=== PATIENT | female | born 1945 | race Caucasian/White ===

== ENCOUNTER 2017-11-09 16:50 | Inpatient (IN) | payer MEDICARE ==
[2017-11-09] MEDS ORDERED: Acetaminophen 650 MG Suppository PR PRN (18:57)
[2017-11-09] MEDS ORDERED: Mag-Al Plus 1200 MG/1200 MG/120 MG/30 ML UDCUP PO PRN (20:37)
--- NOTE | 2017-11-10 01:50 | HP ---
DATE OF ADMISSION: 11/09/2017 ATTENDING DOCTOR: Dr. Bautista. PCP: Out of town, Dr. Monteiro. BLASTING CAP ASSEMBLER: Dr. Spicer in [place]. REASON FOR ADMISSION: Skilled rehabilitation post recent hospitalization. HISTORY OF PRESENT ILLNESS: Ms. Hopper is a very pleasant 72-year-old female with multiple chronic medical conditions including hypertension, diabetes , obesity, hypothyroidism, DVT with IVC filter on Xarelto. She presented at [facility] in [place] on 10/28/2017 with general weakness noted for a few days. This is associated with shortness of breath, dizziness, nausea, congestion, and chronic yellow productive cough. She denies fever. She states that on the day of admission, she was generally weak and her lower extremities started to feel like jelly that she could not move at all. The patient has history of chronic hypoxia, on continuous O2 at home. She has a history of pulmonary fibrosis with two lung nodules. She is being followed by her parks and recreation worker, Dr. Spicer in [place] for this. Her most recent CT scan prior to hospital admission showed lower lobe bronchiectasis and fibrosis. She has had a positive SSA and she was told she has Sjogren's given her lung findings. She was tried on oral prednisone by Dr. Spicer for a couple of months, which she self-discontinued secondary to gaining 20 pounds in a month's time. On her recent hospitalization, the patient was treated for pulmonary consolidation in the left lung base suspicious for pneumonia. She completed Rocephin and doxycycline over the course She receives DuoNeb q.i.d. scheduled. She remains on continuous O2 per nasal cannula between 2 to 3 liters. She is placed back on oral steroid at this point, currently on Prednisone 20 mg p.o. daily. The patient was placed on LifeVest during this recent hospitalization. She reports it did not work on her, thus discontinued. After 2 weeks of hospitalization, the patient remains generally weak and unable to walk. She reports that she could walk at least 50 feet using a rolling walker at home as her baseline. She reports that because of her previous 3 left knee surgeries and foot fracture, she remains to have an unsteady gait. The patient reported that she continues to have shortness of breath intermittently, especially with ambulation. She thinks she is at her respiratory baseline at this point. No other new issues reported. . PAST MEDICAL HISTORY: Hypertension, diabetes, hyperlipidemia, hypothyroidism, DVT with status post IVC filter and long-term anticoagulation with Xarelto, Sjogren disease, pulmonary fibrosis, pulmonary nodules being monitored by Dr. Spicer/parks and recreation worker, obesity, depression, anxiety, unsteady gait. PAST SURGICAL HISTORY: Cholecystectomy, hysterectomy, thyroidectomy, total knee replacement x3. ALLERGIES: BIAXIN, TORADOL. SOCIAL HISTORY: The patient is single, lives with her daughter who serves as primary chemical preparer. She lives in [place]. She never smoked. She admits to occasional alcohol beverage drink. Denies illicit drug use. OTHER PROCEDURES DONE: Status post bronchoscopy, 10/30/2017, by Dr. Spicer, culture was negative. CURRENT MEDICATIONS: Prednisone 20 mg p.o. daily, metformin 1000 mg p.o. b.i.d. , rosuvastatin 20 mg p.o. at bedtime, multivitamins 1 capsule each daily, metoprolol 100 mg p.o. at bedtime, Humalog 22 units subcu b.i.d., Levemir 6 units subcu b.i.d., Xarelto 20 mg p.o. at bedtime, glimepiride 4 mg p.o. b.i.d. , levothyroxine 125 mg p.o. q.a.m., losartan 100 mg p.o. daily, venlafaxine 150 mg XR daily. REVIEW OF SYSTEMS: General: Reports general weakness, fatigue. Denies fever, chills, loss of appetite. HEENT: No acute visual changes or hearing changes. She reports chronic hoarseness of voice. Respiratory: As per HPI. Denies sputum production, bloody sputum, pain with breathing. Cardiac: Denies chest pain, pain with breathing. Reports intermittent leg edema, dyspnea on exertion. Denies paroxysmal nocturnal dyspnea. Genitourinary: No dysuria, hematuria, frequency, urgency. Denies incontinence and hematuria. Musculoskeletal: Reports intermittent arthralgia stiffness. No joint effusion or swelling. Neuro: No focal numbness, focal weakness. Reports unsteady gait secondary to imbalance. Psych: Admits to depressive symptoms, anxiety. No hallucinations. No suicidal thoughts, ideations, or plans. Skin: No rashes, no lesions. ASSESSMENT: 1. Deconditioning. 2. General weakness. 3. Pulmonary fibrosis, probable Sjogren disease. 4. Community Acquired Pneumonia, treated. 5. Chronic hypoxia, 02 requiring. 6. Type 2 diabetes, insulin requiring. 7. Hypertension. 8. Acquired hypothyroidism. 9. Dyslipidemia. 10. Depression/anxiety. 11.Morbid Obesity. 12. Unsteady gait. 13. H/o DVT, status post IVC filter and long-term anticoagulation with Xarelto. PLAN: 1. The patient is admitted to Med/Surg for skilled rehabilitation. PT, OT evaluate and treat. 2. Continue current medication as modified as per list. We will confirm the length of oral steroid treatment with the hospitalist or Dr. Spicer, the parks and recreation worker. Accu-Chek q.a.c. and at bedtime, DuoNeb q.i.d., while awake. 3. O2: To keep O2 sats 92 and above. 4. Diet: Diabetic diet. 5. Activity will be determined by the therapist. 6. Deep venous thrombosis prophylaxis: The patient is already on Xarelto. 7. GI prophylaxis with PPI. We will continue to monitor the patient for any medical comorbidities that may interfere with rehab progress. ESTIMATED LENGTH OF STAY: 2 to 3 weeks. CODE STATUS: The patient reports full code. MTDD
[2017-11-10] MEDS ORDERED: Ondansetron ODT 4 MG TAB PO PRN (02:26)
[2017-11-10] MEDS ORDERED: Levothyroxine Sodium 125 MCG TAB PO SCH (06:30)
[2017-11-10] MEDS ORDERED: HumaLOG 300 UNITS/3 ML VIAL SC SCH (09:00)
[2017-11-10] MEDS: Calcium/Multivitamins W-Iron 1 TAB TAB PO SCH (09:11)
[2017-11-10] MEDS: metFORMIN XR 500 MG TAB PO SCH ×2 (09:11→16:57)
[2017-11-10] MEDS: Glimepiride 2 MG TAB PO SCH ×2 (09:12→16:57)
[2017-11-10] MEDS: Losartan 25 MG TAB PO SCH (09:12)
[2017-11-10] MEDS: predniSONE 20 MG TAB PO SCH (09:12)
[2017-11-10] MEDS: Venlafaxine HCl XR 150 MG CAP PO SCH (09:12)
[2017-11-10] MEDS: Lantus 1000 UNITS/10 ML VIAL SC SCH ×2 (09:15→20:31)
[2017-11-10] MEDS: HumaLOG 300 UNITS/3 ML VIAL SC SCH ×2 (10:00→16:58)
[2017-11-10] MEDS: Acetaminophen 325 MG TAB PO PRN ×2 (10:59→20:37)
[2017-11-10] MEDS: Rivaroxaban 10 MG TAB PO SCH (16:58)
[2017-11-10] MEDS: Rosuvastatin 10 MG TAB PO SCH (20:31)
[2017-11-11] MEDS: Levothyroxine Sodium 125 MCG TAB PO SCH (05:54)
[2017-11-11] MEDS: predniSONE 20 MG TAB PO SCH (08:04)
[2017-11-11] MEDS: Glimepiride 2 MG TAB PO SCH ×2 (08:04→16:57)
[2017-11-11] MEDS: metFORMIN XR 500 MG TAB PO SCH ×2 (08:04→16:57)
[2017-11-11] MEDS: Venlafaxine HCl XR 150 MG CAP PO SCH (08:04)
[2017-11-11] MEDS: Calcium/Multivitamins W-Iron 1 TAB TAB PO SCH (08:04)
[2017-11-11] MEDS: Losartan 25 MG TAB PO SCH (08:05)
[2017-11-11] MEDS: Lantus 1000 UNITS/10 ML VIAL SC SCH ×2 (08:06→20:30)
[2017-11-11] MEDS: HumaLOG 300 UNITS/3 ML VIAL SC SCH ×2 (08:07→16:58)
[2017-11-11] MEDS: Rivaroxaban 10 MG TAB PO SCH (16:57)
[2017-11-11] MEDS: Polyethylene Glycol 3350 17 GM Packet PO PRN (16:57)
[2017-11-11] MEDS: Rosuvastatin 10 MG TAB PO SCH (20:32)
[2017-11-12] MEDS: Levothyroxine Sodium 125 MCG TAB PO SCH (05:39)
[2017-11-12] MEDS: predniSONE 20 MG TAB PO SCH (08:36)
[2017-11-12] MEDS: Glimepiride 2 MG TAB PO SCH ×2 (08:36→20:36)
[2017-11-12] MEDS: Losartan 25 MG TAB PO SCH (08:37)
[2017-11-12] MEDS: Venlafaxine HCl XR 150 MG CAP PO SCH (08:37)
[2017-11-12] MEDS: Calcium/Multivitamins W-Iron 1 TAB TAB PO SCH (08:37)
[2017-11-12] MEDS: HumaLOG 300 UNITS/3 ML VIAL SC SCH ×2 (08:38→17:04)
[2017-11-12] MEDS: Lantus 1000 UNITS/10 ML VIAL SC SCH ×2 (08:38→17:02)
[2017-11-12] MEDS ORDERED: metFORMIN XR 500 MG TAB PO SCH (17:00)
[2017-11-12] MEDS: Rivaroxaban 10 MG TAB PO SCH (17:31)
[2017-11-12] MEDS: Rosuvastatin 10 MG TAB PO SCH (20:35)
[2017-11-12] MEDS: metFORMIN 500 MG TAB PO SCH (20:36)
[2017-11-13] MEDS: Levothyroxine Sodium 125 MCG TAB PO SCH (03:55)
[2017-11-13] MEDS: Acetaminophen 325 MG TAB PO PRN (03:56)
[2017-11-13 05:15] LABS: Hemoglobin 11.5 g/dL (12.0-16.0); Platelet Count 473 thou/uL (130-400)
[2017-11-13] MEDS: HumaLOG 300 UNITS/3 ML VIAL SC SCH ×3 (07:48→16:54)
[2017-11-13] MEDS: Lantus 1000 UNITS/10 ML VIAL SC SCH ×4 (07:48→16:54)
[2017-11-13] MEDS: Glimepiride 2 MG TAB PO SCH ×2 (07:50→20:19)
[2017-11-13] MEDS: Calcium/Multivitamins W-Iron 1 TAB TAB PO SCH (07:50)
[2017-11-13] MEDS: metFORMIN 500 MG TAB PO SCH ×2 (07:50→20:19)
[2017-11-13] MEDS: Losartan 25 MG TAB PO SCH (07:50)
[2017-11-13] MEDS: Venlafaxine HCl XR 150 MG CAP PO SCH (07:50)
[2017-11-13] MEDS: predniSONE 20 MG TAB PO SCH (07:51)
[2017-11-13] MEDS: Rivaroxaban 10 MG TAB PO SCH (16:54)
[2017-11-13] MEDS: Rosuvastatin 10 MG TAB PO SCH (20:19)
[2017-11-14] MEDS: Levothyroxine Sodium 125 MCG TAB PO SCH (06:01)
[2017-11-14] MEDS: Glimepiride 2 MG TAB PO SCH ×2 (07:56→20:28)
[2017-11-14] MEDS: Lantus 1000 UNITS/10 ML VIAL SC SCH ×2 (07:58→16:48)
[2017-11-14] MEDS: HumaLOG 300 UNITS/3 ML VIAL SC SCH ×2 (07:58→16:48)
[2017-11-14] MEDS: metFORMIN 500 MG TAB PO SCH ×2 (07:59→20:26)
[2017-11-14] MEDS: predniSONE 20 MG TAB PO SCH (07:59)
[2017-11-14] MEDS: Losartan 25 MG TAB PO SCH (10:07)
[2017-11-14] MEDS: Calcium/Multivitamins W-Iron 1 TAB TAB PO SCH (10:07)
[2017-11-14] MEDS: Venlafaxine HCl XR 150 MG CAP PO SCH (10:07)
[2017-11-14] MEDS: Rivaroxaban 10 MG TAB PO SCH (16:49)
[2017-11-14] MEDS: Rosuvastatin 10 MG TAB PO SCH (20:27)
[2017-11-15 05:15] LABS: Hemoglobin 11.5 g/dL (12.0-16.0); Platelet Count 456 thou/uL (130-400)
[2017-11-15] MEDS: Levothyroxine Sodium 125 MCG TAB PO SCH (05:43)
[2017-11-15] MEDS: Glimepiride 2 MG TAB PO SCH ×2 (07:50→20:51)
[2017-11-15] MEDS: Lantus 1000 UNITS/10 ML VIAL SC SCH ×2 (07:52→20:52)
[2017-11-15] MEDS: HumaLOG 300 UNITS/3 ML VIAL SC SCH ×2 (07:52→21:13)
[2017-11-15] MEDS: metFORMIN 500 MG TAB PO SCH ×2 (09:44→20:51)
[2017-11-15] MEDS: Calcium/Multivitamins W-Iron 1 TAB TAB PO SCH (09:45)
[2017-11-15] MEDS: predniSONE 20 MG TAB PO SCH (09:45)
[2017-11-15] MEDS: Losartan 25 MG TAB PO SCH (09:46)
[2017-11-15] MEDS: Venlafaxine HCl XR 150 MG CAP PO SCH (09:47)
[2017-11-15] MEDS ORDERED: Dextrose 50% Abboject 50 ML SYRINGE SLOW IVP PRN (11:05)
[2017-11-15] MEDS ORDERED: Dextrose 5% in Water 1,000 ML IV PRN (11:05)
[2017-11-15] MEDS: Rivaroxaban 10 MG TAB PO SCH (17:26)
[2017-11-15] MEDS: Rosuvastatin 10 MG TAB PO SCH (20:51)
[2017-11-16] MEDS: Levothyroxine Sodium 125 MCG TAB PO SCH (05:28)
[2017-11-16] MEDS: Glimepiride 2 MG TAB PO SCH ×2 (08:33→21:19)
[2017-11-16] MEDS: Calcium/Multivitamins W-Iron 1 TAB TAB PO SCH (08:33)
[2017-11-16] MEDS: metFORMIN 500 MG TAB PO SCH ×2 (08:34→21:19)
[2017-11-16] MEDS: Venlafaxine HCl XR 150 MG CAP PO SCH (08:34)
[2017-11-16] MEDS: Losartan 25 MG TAB PO SCH (08:34)
[2017-11-16] MEDS: predniSONE 20 MG TAB PO SCH (08:34)
[2017-11-16] MEDS: HumaLOG 300 UNITS/3 ML VIAL SC SCH ×2 (08:35→21:20)
[2017-11-16] MEDS: Lantus 1000 UNITS/10 ML VIAL SC SCH ×2 (08:36→21:21)
[2017-11-16] MEDS: Acetaminophen 325 MG TAB PO PRN ×2 (10:54→23:11)
[2017-11-16 11:53] LABS: Hemoglobin A1c 6.6 % (4.0-6.0)
[2017-11-16] MEDS: Rivaroxaban 10 MG TAB PO SCH (17:31)
[2017-11-16] MEDS: Rosuvastatin 10 MG TAB PO SCH (21:18)
[2017-11-17] MEDS: Levothyroxine Sodium 125 MCG TAB PO SCH (05:12)
[2017-11-17 05:43] LABS: Hemoglobin 11.4 g/dL (12.0-16.0); Platelet Count 481 thou/uL (130-400)
[2017-11-17] MEDS: Losartan 25 MG TAB PO SCH (08:55)
[2017-11-17] MEDS: metFORMIN 500 MG TAB PO SCH ×2 (08:56→20:47)
[2017-11-17] MEDS: Lantus 1000 UNITS/10 ML VIAL SC SCH ×2 (08:56→20:48)
[2017-11-17] MEDS: Venlafaxine HCl XR 150 MG CAP PO SCH (08:56)
[2017-11-17] MEDS: HumaLOG 300 UNITS/3 ML VIAL SC SCH ×2 (08:56→20:48)
[2017-11-17] MEDS: predniSONE 20 MG TAB PO SCH (08:56)
[2017-11-17] MEDS: Glimepiride 2 MG TAB PO SCH ×2 (08:56→20:48)
[2017-11-17] MEDS: Calcium/Multivitamins W-Iron 1 TAB TAB PO SCH (08:56)
[2017-11-17] MEDS: Rivaroxaban 10 MG TAB PO SCH (16:13)
[2017-11-17] MEDS: Rosuvastatin 10 MG TAB PO SCH (20:47)
[2017-11-17] MEDS: Acetaminophen 325 MG TAB PO PRN (21:01)
[2017-11-18] MEDS: Levothyroxine Sodium 125 MCG TAB PO SCH (06:01)
[2017-11-18] MEDS: Losartan 25 MG TAB PO SCH (08:29)
[2017-11-18] MEDS: metFORMIN 500 MG TAB PO SCH ×2 (08:29→21:24)
[2017-11-18] MEDS: Calcium/Multivitamins W-Iron 1 TAB TAB PO SCH (08:29)
[2017-11-18] MEDS: Venlafaxine HCl XR 150 MG CAP PO SCH (08:29)
[2017-11-18] MEDS: Glimepiride 2 MG TAB PO SCH ×2 (08:29→21:25)
[2017-11-18] MEDS: HumaLOG 300 UNITS/3 ML VIAL SC SCH ×2 (08:30→21:26)
[2017-11-18] MEDS: Lantus 1000 UNITS/10 ML VIAL SC SCH ×2 (08:30→21:27)
[2017-11-18] MEDS: predniSONE 20 MG TAB PO SCH (08:30)
[2017-11-18] MEDS: Acetaminophen 325 MG TAB PO PRN (15:04)
[2017-11-18] MEDS: Rivaroxaban 10 MG TAB PO SCH (17:20)
[2017-11-18] MEDS: Rosuvastatin 10 MG TAB PO SCH (21:25)
[2017-11-19] MEDS: Levothyroxine Sodium 125 MCG TAB PO SCH (05:33)
[2017-11-19 05:46] LABS: Platelet Count 411 thou/uL (130-400)
[2017-11-19] MEDS: predniSONE 20 MG TAB PO SCH (08:20)
[2017-11-19] MEDS: Venlafaxine HCl XR 150 MG CAP PO SCH (08:20)
[2017-11-19] MEDS: metFORMIN 500 MG TAB PO SCH ×2 (08:20→20:33)
[2017-11-19] MEDS: Glimepiride 2 MG TAB PO SCH ×2 (08:20→20:33)
[2017-11-19] MEDS: Losartan 25 MG TAB PO SCH (08:20)
[2017-11-19] MEDS: Calcium/Multivitamins W-Iron 1 TAB TAB PO SCH (08:20)
[2017-11-19] MEDS: HumaLOG 300 UNITS/3 ML VIAL SC SCH ×2 (08:22→20:34)
[2017-11-19] MEDS: Lantus 1000 UNITS/10 ML VIAL SC SCH ×2 (08:23→20:35)
[2017-11-19] MEDS: Diabetic Tussin 200 MG/10 ML UDCUP PO PRN (15:29)
[2017-11-19] MEDS: Rivaroxaban 10 MG TAB PO SCH (17:37)
[2017-11-19] MEDS: Benzonatate 100 MG CAP PO SCH (20:33)
[2017-11-19] MEDS: Rosuvastatin 10 MG TAB PO SCH (20:38)
[2017-11-20] MEDS: Glimepiride 2 MG TAB PO SCH ×2 (15:59→20:46)
[2017-11-20] MEDS: metFORMIN 500 MG TAB PO SCH ×2 (15:59→20:14)
[2017-11-20] MEDS: Levothyroxine Sodium 125 MCG TAB PO SCH (15:59)
[2017-11-20] MEDS: Calcium/Multivitamins W-Iron 1 TAB TAB PO SCH (16:00)
[2017-11-20] MEDS: predniSONE 20 MG TAB PO SCH (16:00)
[2017-11-20] MEDS: Lantus 1000 UNITS/10 ML VIAL SC SCH ×2 (16:00→23:11)
[2017-11-20] MEDS: Benzonatate 100 MG CAP PO SCH ×3 (16:00→20:46)
[2017-11-20] MEDS: Losartan 25 MG TAB PO SCH (16:01)
[2017-11-20] MEDS: Venlafaxine HCl XR 150 MG CAP PO SCH (16:02)
[2017-11-20] MEDS: HumaLOG 300 UNITS/3 ML VIAL SC SCH ×2 (17:30→17:35)
[2017-11-20] MEDS: Rivaroxaban 10 MG TAB PO SCH (17:32)
[2017-11-20] MEDS: Acetaminophen 325 MG TAB PO PRN (20:46)
[2017-11-20] MEDS: Rosuvastatin 10 MG TAB PO SCH (20:46)
[2017-11-20] MEDS: Diabetic Tussin 200 MG/10 ML UDCUP PO PRN (20:52)
[2017-11-21] MEDS: Levothyroxine Sodium 125 MCG TAB PO SCH (05:10)
[2017-11-21 05:26] LABS: Hemoglobin 11.1 g/dL (12.0-16.0); Platelet Count 369 thou/uL (130-400)
[2017-11-21] MEDS: Calcium/Multivitamins W-Iron 1 TAB TAB PO SCH (08:19)
[2017-11-21] MEDS: Glimepiride 2 MG TAB PO SCH ×2 (08:19→20:48)
[2017-11-21] MEDS: Venlafaxine HCl XR 150 MG CAP PO SCH (08:19)
[2017-11-21] MEDS: Lantus 1000 UNITS/10 ML VIAL SC SCH ×2 (08:20→20:49)
[2017-11-21] MEDS: Benzonatate 100 MG CAP PO SCH ×3 (08:20→20:47)
[2017-11-21] MEDS: Losartan 25 MG TAB PO SCH (08:20)
[2017-11-21] MEDS: metFORMIN 500 MG TAB PO SCH ×2 (08:20→16:40)
[2017-11-21] MEDS: predniSONE 20 MG TAB PO SCH (08:20)
[2017-11-21] MEDS: HumaLOG 300 UNITS/3 ML VIAL SC SCH ×2 (08:21→16:40)
[2017-11-21] MEDS: Diabetic Tussin 200 MG/10 ML UDCUP PO PRN (15:52)
[2017-11-21] MEDS: Rivaroxaban 10 MG TAB PO SCH (16:40)
[2017-11-21] MEDS: Rosuvastatin 10 MG TAB PO SCH (20:49)
[2017-11-21] MEDS: Acetaminophen 325 MG TAB PO PRN (22:19)
[2017-11-22] MEDS: Levothyroxine Sodium 125 MCG TAB PO SCH (05:32)
[2017-11-22] MEDS: Losartan 25 MG TAB PO SCH (08:55)
[2017-11-22] MEDS: predniSONE 20 MG TAB PO SCH (08:55)
[2017-11-22] MEDS: metFORMIN 500 MG TAB PO SCH ×2 (08:55→17:04)
[2017-11-22] MEDS: Benzonatate 100 MG CAP PO SCH ×3 (08:55→20:12)
[2017-11-22] MEDS: Glimepiride 2 MG TAB PO SCH ×2 (08:56→20:11)
[2017-11-22] MEDS: Lantus 1000 UNITS/10 ML VIAL SC SCH ×2 (08:56→20:18)
[2017-11-22] MEDS: HumaLOG 300 UNITS/3 ML VIAL SC SCH ×2 (08:56→17:04)
[2017-11-22] MEDS: Venlafaxine HCl XR 150 MG CAP PO SCH (08:56)
[2017-11-22] MEDS: Calcium/Multivitamins W-Iron 1 TAB TAB PO SCH (08:56)
[2017-11-22] MEDS: Rivaroxaban 10 MG TAB PO SCH (17:04)
[2017-11-22] MEDS: Rosuvastatin 10 MG TAB PO SCH (20:14)
[2017-11-22] MEDS: Diabetic Tussin 200 MG/10 ML UDCUP PO PRN (20:20)
[2017-11-23] MEDS: Levothyroxine Sodium 125 MCG TAB PO SCH (05:26)
[2017-11-23] MEDS: Diabetic Tussin 200 MG/10 ML UDCUP PO PRN ×2 (05:32→11:14)
[2017-11-23] MEDS: Glimepiride 2 MG TAB PO SCH ×2 (08:23→20:31)
[2017-11-23] MEDS: predniSONE 20 MG TAB PO SCH (08:23)
[2017-11-23] MEDS: metFORMIN 500 MG TAB PO SCH ×2 (08:23→16:58)
[2017-11-23] MEDS: Calcium/Multivitamins W-Iron 1 TAB TAB PO SCH (08:24)
[2017-11-23] MEDS: Losartan 25 MG TAB PO SCH (08:24)
[2017-11-23] MEDS: Venlafaxine HCl XR 150 MG CAP PO SCH (08:24)
[2017-11-23] MEDS: Benzonatate 100 MG CAP PO SCH ×2 (08:24→14:50)
[2017-11-23] MEDS: HumaLOG 300 UNITS/3 ML VIAL SC SCH ×2 (08:25→16:58)
[2017-11-23] MEDS: Lantus 1000 UNITS/10 ML VIAL SC SCH ×2 (08:25→20:33)
[2017-11-23] MEDS: Rivaroxaban 10 MG TAB PO SCH (16:59)
[2017-11-23] MEDS: Promethazine DM 6.25-15mg/5ml 120 ML BOT PO PRN (17:58)
[2017-11-23] MEDS: Rosuvastatin 10 MG TAB PO SCH (20:31)
[2017-11-24] MEDS: Levothyroxine Sodium 125 MCG TAB PO SCH (06:10)
[2017-11-24] MEDS: Glimepiride 2 MG TAB PO SCH ×2 (08:01→20:49)
[2017-11-24] MEDS: metFORMIN 500 MG TAB PO SCH ×2 (08:01→16:59)
[2017-11-24] MEDS: predniSONE 20 MG TAB PO SCH (08:01)
[2017-11-24] MEDS: HumaLOG 300 UNITS/3 ML VIAL SC SCH ×2 (08:04→16:59)
[2017-11-24] MEDS: Calcium/Multivitamins W-Iron 1 TAB TAB PO SCH (10:35)
[2017-11-24] MEDS: Venlafaxine HCl XR 150 MG CAP PO SCH (10:35)
[2017-11-24] MEDS: Losartan 25 MG TAB PO SCH (10:36)
[2017-11-24] MEDS: Lantus 1000 UNITS/10 ML VIAL SC SCH ×2 (10:36→20:49)
[2017-11-24] MEDS: Promethazine DM 6.25-15mg/5ml 120 ML BOT PO PRN ×2 (12:36→20:49)
[2017-11-24] MEDS: Polyethylene Glycol 3350 17 GM Packet PO PRN (15:19)
[2017-11-24] MEDS: Rivaroxaban 10 MG TAB PO SCH (16:59)
[2017-11-24] MEDS: Rosuvastatin 10 MG TAB PO SCH (20:49)
[2017-11-25 05:16] LABS: Platelet Count 369 thou/uL (130-400)
[2017-11-25] MEDS: Levothyroxine Sodium 125 MCG TAB PO SCH (05:45)
[2017-11-25] MEDS: Losartan 25 MG TAB PO SCH (08:35)
[2017-11-25] MEDS: Glimepiride 2 MG TAB PO SCH ×2 (08:35→20:09)
[2017-11-25] MEDS: Calcium/Multivitamins W-Iron 1 TAB TAB PO SCH (08:35)
[2017-11-25] MEDS: predniSONE 20 MG TAB PO SCH (08:36)
[2017-11-25] MEDS: Venlafaxine HCl XR 150 MG CAP PO SCH (08:36)
[2017-11-25] MEDS: metFORMIN 500 MG TAB PO SCH ×2 (08:36→16:35)
[2017-11-25] MEDS: HumaLOG 300 UNITS/3 ML VIAL SC SCH ×2 (08:36→16:36)
[2017-11-25] MEDS: Lantus 1000 UNITS/10 ML VIAL SC SCH ×2 (08:36→20:11)
[2017-11-25] MEDS: Rivaroxaban 10 MG TAB PO SCH (16:35)
[2017-11-25] MEDS: Promethazine DM 6.25-15mg/5ml 120 ML BOT PO PRN (20:08)
[2017-11-25] MEDS: Rosuvastatin 10 MG TAB PO SCH (20:09)
[2017-11-26] MEDS: Levothyroxine Sodium 125 MCG TAB PO SCH (05:46)
[2017-11-26] MEDS: Losartan 25 MG TAB PO SCH (08:30)
[2017-11-26] MEDS: Calcium/Multivitamins W-Iron 1 TAB TAB PO SCH (08:30)
[2017-11-26] MEDS: Venlafaxine HCl XR 150 MG CAP PO SCH (08:31)
[2017-11-26] MEDS: metFORMIN 500 MG TAB PO SCH ×2 (08:31→16:13)
[2017-11-26] MEDS: Glimepiride 2 MG TAB PO SCH ×2 (08:31→21:15)
[2017-11-26] MEDS: predniSONE 20 MG TAB PO SCH (08:31)
[2017-11-26] MEDS: HumaLOG 300 UNITS/3 ML VIAL SC SCH ×2 (08:33→16:14)
[2017-11-26] MEDS: Lantus 1000 UNITS/10 ML VIAL SC SCH ×2 (08:33→21:15)
[2017-11-26] MEDS: Promethazine DM 6.25-15mg/5ml 120 ML BOT PO PRN ×2 (15:12→22:04)
[2017-11-26] MEDS: Rivaroxaban 10 MG TAB PO SCH (16:13)
[2017-11-26 17:36] VITALS: BMI 33.2
[2017-11-26] MEDS: Rosuvastatin 10 MG TAB PO SCH (21:15)
[2017-11-27 05:26] LABS: Hemoglobin 11.6 g/dL (12.0-16.0); Platelet Count 447 thou/uL (130-400)
[2017-11-27] MEDS: Levothyroxine Sodium 125 MCG TAB PO SCH (05:58)
[2017-11-27 07:47] VITALS: TEMP 97
[2017-11-27] MEDS: HumaLOG 300 UNITS/3 ML VIAL SC SCH ×2 (08:56→17:05)
[2017-11-27] MEDS: Glimepiride 2 MG TAB PO SCH (08:56)
[2017-11-27] MEDS: Lantus 1000 UNITS/10 ML VIAL SC SCH (08:57)
[2017-11-27] MEDS: Calcium/Multivitamins W-Iron 1 TAB TAB PO SCH (08:58)
[2017-11-27] MEDS: metFORMIN 500 MG TAB PO SCH ×2 (08:58→17:06)
[2017-11-27] MEDS: predniSONE 20 MG TAB PO SCH (08:58)
[2017-11-27] MEDS: Losartan 25 MG TAB PO SCH (08:59)
[2017-11-27] MEDS: Venlafaxine HCl XR 150 MG CAP PO SCH (08:59)
[2017-11-27] MEDS: Promethazine DM 6.25-15mg/5ml 120 ML BOT PO PRN ×2 (09:00→17:12)
[2017-11-27 12:52] VITALS: BP 113/54
[2017-11-27] MEDS: Rivaroxaban 10 MG TAB PO SCH (17:06)
--- NOTE | 2017-11-28 03:15 | DIS ---
DATE OF ADMISSION: 11/09/2017 DATE OF DISCHARGE: 11/27/2017 ATTENDING: Anai Bautista M.D. PRIMARY CARE PHYSICIAN: Out of [facility], Dr. Monteiro. INSURANCE SPECIAL AGENT: Dr. Spicer in [place]. REASON FOR ADMISSION: Skilled rehabilitation from recent hospitalization. DISPOSITION: Home. CONDITION ON DISCHARGE: Stable. HOME MEDICATIONS: DuoNeb q.6 hours p.r.n., pantoprazole 40 mg p.o. daily, promethazine DM 10 mL p.o. q.6 hours p.r.n. for cough, glimepiride 4 mg p.o. b.i.d., metformin 500 mg b.i.d., Humalog 12 units subcutaneously b.i.d. a.c., Lantus 6 units subcu b.i.d., levothyroxine 125 mcg p.o. q.a.m., losartan 100 mg p.o. daily, metoprolol succinate/Toprol XL 100 mg p.o. at bedtime, polyethylene glycol 17 grams p.o. daily, Xarelto 20 mg p.o. every 1700, rosuvastatin 20 mg p.o. at bedtime, Effexor XR 150 mg p.o. daily, acetaminophen 650 mg p.o. q.4 hours p.r.n., multivitamin daily, prednisone 20 mg p.o. q.8 hours. DIET: Diabetic AHA. ACTIVITIES: To use rolling walker at all times. Continuous home O2 at 2 liters per nasal cannula. FOLLOWUP: Follow up with PCP in 1-2 weeks sooner with concerns. Follow up with wrapper stemmer hand in 1-2 weeks. The patient to arrange appointment post discharge per request. [facility] to resume home health services for alf, PT, OT evaluate and treat. ER warnings. FINAL DIAGNOSES: 1. Deconditioning/general weakness. 2. Pulmonary fibrosis, probable Sjogren's disease. 3. Community-acquired pneumonia, treated. 4. Chronic hypoxia, O2 requiring. 5. Unsteady gait. SECONDARY DIAGNOSES: 1. Type 2 diabetes, insulin requiring. 2. Hypertension. 3. Acquired hypothyroidism. 4. Dyslipidemia. 5. Depression. 6. Anxiety. 7. Morbid obesity. 8. History of deep venous thrombosis status post IVC filter on long-term anticoagulation use with Xarelto. HISTORY OF PRESENT ILLNESS AND HOSPITAL COURSE: Ms. Hopper is a very pleasant 72- year-old female with multiple chronic medical conditions including hypertension, diabetes, obesity, hypothyroidism, DVT with IVC filter, on Xarelto. She was admitted to [facility] on 11/09/2017 from [facility] in [place] for general weakness and deconditioning. The patient was recently admitted at [facility] in [place] on 10/28/2017 due to shortness of breath, dizziness, nausea, congestion, and chronic productive cough. She was admitted for bronchiectasis and fibrosis. Note that the patient has had positive SSA prior to admission and she was told that she has possible Sjogren's by her wrapper stemmer hand. She was tried on oral prednisone by her wrapper stemmer hand for this but patient self-discontinued the oral steroids secondary to weight gain of 20 pounds in a month's time. On her recent hospitalization, patient was treated for pulmonary consolidation in the left lung base suspicious of pneumonia. She completed her Rocephin and doxycycline during this time. She also received DuoNeb q.i.d. scheduled. She was placed back on oral steroids. Currently on prednisone 20 mg p.o. daily. Of note, the patient was tried on LifeVest during her recent hospitalization, but was discontinued as she reports it did not work. After 2-week treatment, her overall respiratory symptoms have improved, but she remains generally weak and unable to walk secondary to severe deconditioning. She was then transferred to [facility] for skilled rehabilitation. The patient did a marked improvement in the rehabilitation in a very slow manner. The main barrier during her rehab course was the shortness of breath on exertion. Overall, respiratory symptoms improved and patient tolerated the therapy. She wears her oxygen continuously that helps her breathing. During her rehab course, she complained of paroxysmal coughing spells that led to shortness of breath. She was tried on several cough suppressants, but nothing works except for the promethazine DM. The patient requested to have a prescription of the promethazine DM that was ordered as p.r.n. use at home until seen by her wrapper stemmer hand. Prior to discharge, patient was walking about 80 feet with rolling walker and O2 supplement continuously. She demonstrated good safety awareness and energy conservation techniques. Her O2 saturation remained at 91% -100% on 3 liters per nasal cannula during the therapy and desats to 91% with limited gait distances, but is within normal on 3 liters per nasal cannula when resting. Overall goal is not met during this skilled rehabilitation, but marked improvement was noted. On 11/27/2017, patient is adamant to go home that she was recommended to continue therapy at home via home health. Vital signs prior to discharge, blood pressure 113/54, temperature 97, pulse 82 , respiration rate 18, O2 sat 100% at 2-3 liters per nasal cannula, weight 187 pounds and 8 ounces, height 5 feet 3 inches. CODE STATUS: FULL CODE. Time spent on this discharge, examining the patient and coordinating care 32 minutes. PILY
== END 2017-11-27 19:00 | disposition home health service (06) | DRG 947 ==
LOC: MADMS 16:50
PROVIDERS: ADMIT Family Medicine; ATTEND Family Medicine
DX: R53.1 Weakness (principal); J18.9 Pneumonia, unspecified organism; I10 Essential (primary) hypertension; E11.9 Type 2 diabetes mellitus without complications; E03.9 Hypothyroidism, unspecified; Z86.718 Personal history of other venous thrombosis and embolism; R09.02 Hypoxemia; Z99.81 Dependence on supplemental oxygen; J84.10 Pulmonary fibrosis, unspecified; R91.8 Other nonspecific abnormal finding of lung field; J47.9 Bronchiectasis, uncomplicated; R26.81 Unsteadiness on feet; E78.5 Hyperlipidemia, unspecified; Z79.01 Long term (current) use of anticoagulants; M35.02 Sjogren syndrome with lung involvement; F32.9 Major depressive disorder, single episode, unspecified; F41.9 Anxiety disorder, unspecified; E66.01 Morbid (severe) obesity due to excess calories; H81.10 Benign paroxysmal vertigo, unspecified ear; K30 Functional dyspepsia; K21.9 Gastro-esophageal reflux disease without esophagitis; Z68.33 Body mass index [BMI] 33.0-33.9, adult
CPT/HCPCS: 36415; 36416; 82565; 83036; 85014; 85018; 85049; G8987-GO-CL; G8988-GO-CI; J1815; J7506; J7620; Q0162

== ENCOUNTER 2018-11-17 09:01 | Emergency (ER) | payer MEDICARE ==
[2018-11-17 09:54] LABS: Bilirubin Negative (Negative); Blood, Urine Trace (Negative); Clarity Clear (Clear); Glucose, Urine (Dipstick) 100 mg/dL (Negative); Leukocyte Negative (Negative); Nitrite Negative (Negative); Protein, Urine (Dipstick) Negative (Neg-Trace); Urobilinogen 0.2 mg/dL (Less than 2)
[2018-11-17 10:03] LABS: Hemoglobin 11.7 g/dL (12.0-16.0); Mean Corpuscular HGB CONC 31.5 g/dL (32.0-36.0); Mean Corpuscular Hemoglobin 27.8 pg (27.0-31.0); Mean Corpuscular Volume 88.4 fL (78.0-98.0); Mean Platelet Volume 5.4 fL (7.4-10.4); Platelet Count 316 thou/uL (130-400); RBC Distribution Width 14.2 % (11.5-14.5); Red Blood Cell (RBC) Count 4.22 mill/uL (4.20-5.40); White Blood Cell (WBC) Count 15.4 thou/uL (4.8-10.8)
[2018-11-17 10:04] LABS: Lymphocytes 55 % (21-51); MDiff Complete? YES; Monocytes 4 % (0-10); Neutrophil 38 % (42-75); Platelet Morphology Comment Appears Adequate; Reactive Lymphocytes 3 % (0-10)
[2018-11-17 10:06] LABS: Bacteria/HPF None Seen HPF (None Seen); RBC/HPF 0-3 HPF (0-3); Squamous Epithelial 0-3 HPF (0-3); WBC/HPF None Seen HPF (0-3)
[2018-11-17 10:06] LABS: ALT (SGPT) 21 U/L (8-55); AST (SGOT) 19 U/L (5-34); Albumin 3.3 g/dL (3.4-4.8); Alkaline Phosphatase 41 U/L (40-110); Anion Gap 15 mmol/L (10-20); BUN (Urea Nitrogen) 6 mg/dL (9.8-20.1); Bilirubin, Total 0.4 mg/dL (0.2-1.2); Calc. Creatinine Clearance 0 mL/min (70-130); Calcium 8.9 mg/dL (7.8-10.44); Carbon Dioxide 25 mmol/L (23-31); Chloride 101 mmol/L (98-107); Estimated GFR-MDRD 65; Globulin 3.2 g/dL (2.4-3.5); Glucose 279 mg/dL (83-110); Magnesium 1.8 mg/dL (1.6-2.6); Potassium 4.3 mmol/L (3.5-5.1); Protein, Total 6.5 g/dL (6.0-8.3); Sodium 137 mmol/L (136-145)
--- NOTE | 2018-11-17 10:10 | RAD ---
PORTABLE CHEST: Date: 11/17/18 HISTORY: Tachycardia. COMPARISON: 10/10/15 study. FINDINGS: Heart size is enlarged. Chronic appearing lung changes are seen. These appear progressed as compared to the prior examination. I cannot exclude there being some coexistent element of edema. IMPRESSION: Cardiomegaly with increased interstitial lung markings, progressed as compared to the 10/10/15 study, and are felt to be most likely chronic in nature, but some element of edema could be present. POS: TPC
--- NOTE | 2018-11-17 10:19 | RAD ---
LEFT HIP THREE VIEWS: HISTORY: Pain. No history of injury. FINDINGS: The bones are demineralized. There are mild arthritic changes of the hip. There is no fracture. Surgi mary grace anchors are seen in the right side of the symphysis and right superior pubic ramus. Vascular calc ifications are present. IMPRESSION: Mild arthritic changes of the hip. No acute process. POS: TPC
[2018-11-17] MEDS ORDERED: Sodium Chloride 0.9% 1,000 ML ONE (10:20)
[2018-11-17] MEDS ORDERED: Sodium Chloride 0.9% 100 ML ONE (10:20)
[2018-11-17] MEDS ORDERED: Meropenem 1 GM VIAL ONE (10:20)
[2018-11-17] MEDS ORDERED: Morphine 4 MG/ML VIAL ONE (10:36)
[2018-11-17] MEDS ORDERED: Sodium Chloride 0.9% 500 ML ONE (11:08)
== END 2018-11-17 11:35 | disposition short-term general hospital (02) ==
LOC: MADERS 09:01
DX: A41.9 Sepsis, unspecified organism (principal); I45.81 Long QT syndrome; E11.65 Type 2 diabetes mellitus with hyperglycemia; M79.605 Pain in left leg; E03.9 Hypothyroidism, unspecified; I10 Essential (primary) hypertension; F32.9 Major depressive disorder, single episode, unspecified; Z79.4 Long term (current) use of insulin; Z79.899 Other long term (current) drug therapy
CPT/HCPCS: 36415; 36416; 51701; 71045; 80053; 81003; 81015; 83605; 83735; 83880; 84443; 84484; 85025; 87040; 87086; 93005; 96361; 96365; 96375; A4353; J2185; J2270; J3370; J3490; J7050

== ENCOUNTER 2018-11-29 17:29 | Inpatient (IN) | payer MEDICARE ==
[2018-11-29] MEDS ORDERED: Acetaminophen 325 MG TAB PO PRN (18:15)
[2018-11-29] MEDS ORDERED: Polyethylene Glycol 3350 17 GM Packet PO PRN (18:15)
[2018-11-29] MEDS: Clotrimazole 1% Cream 15 GM TUBE TOP SCH (20:50)
[2018-11-29] MEDS: Amoxicillin/Potassium Clav 875 MG TAB PO SCH (20:51)
[2018-11-29] MEDS: Rosuvastatin 10 MG TAB PO SCH (20:51)
[2018-11-29] MEDS: guaiFENesin ER 600 MG TAB PO SCH (20:51)
[2018-11-29] MEDS: Cyclobenzaprine 10 MG TAB PO SCH (20:52)
[2018-11-29] MEDS: Rivaroxaban 10 MG TAB PO SCH (20:52)
[2018-11-29] MEDS: Docusate 100 MG CAP PO SCH (20:52)
[2018-11-29] MEDS: Gabapentin 300 MG CAP PO SCH (20:54)
[2018-11-29] MEDS: Nystatin 500,000 UNITS/5 ML UDCUP SSW SCH (20:55)
[2018-11-29] MEDS ORDERED: Guaifenesin DM 100-10/5 ML UDCUP ONE (21:56)
[2018-11-29] MEDS ORDERED: guaiFENesin/Codeine Phosphate 100 mg/10 mg 5 ml UD Cup ONE (22:00)
[2018-11-29] MEDS: guaiFENesin/Codeine Phosphate 100 mg/10 mg 5 ml UD Cup PO PRN (22:10)
[2018-11-29] MEDS: HYDROcodone/Acetaminophen 5/325 mg Tablet PO PRN (23:42)
[2018-11-30] MEDS ORDERED: guaiFENesin/Codeine Phosphate 100 mg/10 mg 5 ml UD Cup ONE ×2 (02:56→22:32)
[2018-11-30] MEDS: guaiFENesin/Codeine Phosphate 100 mg/10 mg 5 ml UD Cup PO PRN ×2 (03:02→22:38)
[2018-11-30] MEDS: Levothyroxine Sodium 125 MCG TAB PO SCH (05:00)
[2018-11-30 05:20] LABS: #Basophils 0.1 thou/uL (0.0-0.2); #Eosinphils 0.2 thou/uL (0.0-0.7); #Lymphocytes 3.5 thou/uL (1.20-3.40); #Monocytes 0.8 thou/uL (0.11-0.59); #Neutrophils 6.5 thou/uL (1.40-6.50); %Basophils 0.8 % (0.0-1.0); %Eosinophils 2.2 % (0.0-10.0); %Lymphocytes 31.5 % (21.0-51.0); %Monocytes 6.9 % (0.0-10.0); %Neutrophils 58.6 % (42.0-75.0); Hemoglobin 9.1 g/dL (12.0-16.0); Mean Corpuscular Hemoglobin 27.8 pg (27.0-31.0); Mean Corpuscular Volume 86.9 fL (78.0-98.0); Mean Platelet Volume 4.7 fL (7.4-10.4); Platelet Count 550 thou/uL (130-400); RBC Distribution Width 14.3 % (11.5-14.5); Red Blood Cell (RBC) Count 3.27 mill/uL (4.20-5.40); White Blood Cell (WBC) Count 11.1 thou/uL (4.8-10.8)
[2018-11-30 05:38] LABS: ALT (SGPT) 22 U/L (8-55); AST (SGOT) 27 U/L (5-34); Albumin 2.8 g/dL (3.4-4.8); Alkaline Phosphatase 45 U/L (40-110); Anion Gap 10 mmol/L (10-20); BUN (Urea Nitrogen) 6 mg/dL (9.8-20.1); Bilirubin, Total 0.2 mg/dL (0.2-1.2); Calc. Creatinine Clearance 101 mL/min (70-130); Calcium 8.9 mg/dL (7.8-10.44); Carbon Dioxide 29 mmol/L (23-31); Chloride 103 mmol/L (98-107); Estimated GFR-MDRD 77; Globulin 3.6 g/dL (2.4-3.5); Glucose 197 mg/dL (83-110); Potassium 4.2 mmol/L (3.5-5.1); Protein, Total 6.4 g/dL (6.0-8.3); Sodium 138 mmol/L (136-145)
--- NOTE | 2018-11-30 07:01 | HP ---
CHIEF COMPLAINT: Severe weakness following recent hospitalization for pneumonia and left lumbar radiculopathy. HISTORY OF PRESENT ILLNESS: The patient is a 73-year-old white female, who has a history of hypertension, diabetes, DVT, pulmonary fibrosis, and chronic hypoxemia, requiring supplemental O2. The patient has a history of left knee replacement that got infected and required subsequent surgeries and long course of IV antibiotics. This has left her nonambulatory. She lives at home with her daughter's assistance. She is in bed and able to transfer from the bed by pivoting on her right leg to a lounge chair or into a mobile wheelchair. She was recently hospitalized at [facility] from 11/17/2018 until 11/29/2018 for severe pain in her left leg , for which she was evaluated there at [facility] and had a MRI and was felt that her pain was from a left lumbar radiculopathy. The pain is better, but has not totally resolved. While hospitalized, she also was treated for pneumonia, initially was Zosyn and then switched to Augmentin. She has also had problems with severe burning in her mouth that has gotten better and has been treated with Magic mouthwash. The patient has been left much weaker than usual and has not been able to get up out of bed as of yet. Overall, she feels better. Her left leg is better when she does not move the leg. Her breathing is better. She has had no fever. She was transferred to [facility] for physical therapy and occupational therapy in an attempt to get back to her functional level where she could transfer herself from bed to a chair and mobile wheelchair. The patient was seen soon after her admission to the hospital and was able to give me a history of what had happened to her. She said she is better. Her mouth is better. Her breathing is a lot better. She requires continuous supplemental O2. She said she has not had any fever and she has a little dry nonproductive cough. She persists to having pain in that left leg with much movement, which was comfortable at rest. PAST MEDICAL HISTORY: Hospitalized at [facility] from 11/17 until 11/29/2018 for severe left leg pain secondary to a left lumbar radiculopathy, hospitalization complicated by pneumonia, that has improved. Hospitalized at [facility] for deconditioning, generalized weakness from until 11/27/2017. The patient has a history of pulmonary fibrosis. She has been treated in the past for pneumonia. She has hypoxemia, requiring supplemental O2 ; diabetes type 2, insulin requiring; hypertension; hypothyroidism; anxiety; depression; obesity; history of deep vein thrombosis, requiring IVC filter placement, also is on long-term anticoagulants with Xarelto. The patient has had a cholecystectomy, hysterectomy, and thyroidectomy. She has had a right total knee replacement, also has had a left total knee replacement that became infected and required removal of hardware and long-term IV antibiotics and later placement of spacers. This has left her nonambulatory. PRESENT MEDICATIONS: 1. Acetaminophen 650 mg every 4 hours as needed. 2. Levothyroxine 125 mcg daily. 3. Metformin 500 mg b.i.d. 4. Venlafaxine XR 150 mg daily. 5. MiraLAX 17 g 8 ounces of water daily as needed. 6. Xarelto 20 mg at bedtime. 7. Centrum Silver tablets daily. 8. Crestor 20 mg at bedtime. 9. Metoprolol succinate 100 mg daily. 10. Losartan 100 mg daily. 11. Gabapentin 300 mg t.i.d. 12. Flexeril 10 mg t.i.d. as needed. 13. Augmentin 875/125 one b.i.d. 14. Gabapentin 300 mg t.i.d. 15. Fluconazole 100 mg daily. 16. Pantoprazole 40 mg daily. 17. Levemir 6 units subcu daily. 18. Humalog 4 units ac. ALLERGIES: BACTRIM AND TORADOL. REVIEW OF SYSTEMS: CONSTITUTIONAL: The patient does not think she has had any fever. The patient does not think her weight has changed. HEAD AND NECK: No complaint. The patient said her mouth is feeling fine. No longer hurting or burning. PULMONARY: The patient said her breathing is fine. She is a little cough periodically, but it is not productive. CARDIOVASCULAR: No chest pain. GI: Occasionally, she has a little nausea, but no vomiting. Bowels are moving well. : Incontinent of urine. MUSCULOSKELETAL: The patient has left lower leg pain that extends from the low back down into the buttock, down the back of the leg to just above the ankle. Movements seemed to aggravate this. HABITS: Alcohol, none. Tobacco, none. ADLS: The patient requires assistance with her ADLs prior to the hospitalization. She could assist with transfer from bed to a wheelchair or lounge chair by pivoting on her right leg. CODE STATUS: Full code. PHYSICAL EXAMINATION: VITAL SIGNS: O2 saturation 100% on 3 L, pulse 91, respirations 22, blood pressure 134/63, and temp 99. GENERAL: Pleasant, obese 73-year-old white female, who is lying in bed with oxygen on at 3 L. She is talkative and appears in no distress. HEENT: Head, normocephalic. Eyes; pupils are equal, round, and reactive. Sclerae nonicteric. Ears, TMs are clear. Nose, normal. Mouth and throat, normal. NECK: Carotids are equal and strong. No bruits. Thyroid not enlarged. LUNGS: Anterior chest is clear. The patient has some coarse rales that decreased with deep inspiration at the posterior bases. There are no wheezes. HEART: Regular rate. No murmurs. ABDOMEN: Obese with no organomegaly or areas of tenderness. LOWER EXTREMITIES: There is no edema. The patient has scars over both knees. She has limited ability to move that left leg due to the pain. SKIN: The patient has a bruising from IV sites in her arms. She has a reddened area over the sacral area and early skin breakdown that has been dressed with Mepilex. NEUROLOGIC: The patient is alert and oriented x3, understands her situation. She has severe generalized weakness, but more so on that left leg due to the pain and previous surgery and infection in the knee. IMPRESSION: 1. Deconditioning and generalized weakness. a. Following recent hospitalization at [facility]. b. Hospitalized at [facility] from 11/17/2018 until 11/29/2018 for left lumbar radiculopathy and pneumonia and burning mouth syndrome, possible candidiasis. 2. Pneumonia. a. Resolving. 3. Pulmonary fibrosis. a. Complicated by chronic hypoxemia, requiring supplemental O2. 4. Diabetes mellitus, type 2, insulin requiring. 5. Hypothyroidism. 6. History of deep venous thrombosis. a. Status post IVC filter. b. On long-term anticoagulant with Xarelto. 7. Hyperlipidemia. 8. Left lumbar radiculopathy. 9. Obesity. 10. Nonambulatory. 11. Severe osteoarthritis, generalized. a. Status post right total knee replacement. b. Status post left total knee replacement, complicated by infection, requiring removal of hardware, long-term IV antibiotics, and placement with spacers, leaving her nonambulatory. 12. Obesity. PLAN: The patient has been transferred to [facility] in an effort to try to help with her deconditioning. Prior to her hospitalization, she was not ambulatory, but was bed mobile and was able to transfer by pivoting on the right leg into an immobile wheelchair or lounge chair, but still requires assistance with ADLs. We will shoot for these goals of function. We will complete her course of Augmentin and continue her Xarelto. We will check glucometers 4 times a day. Code status, full. Job ID: [id number] MTDD
[2018-11-30] MEDS: Docusate 100 MG CAP PO SCH ×2 (08:54→20:37)
[2018-11-30] MEDS: Multivitamin W/ Minerals 1 TAB PO SCH (08:54)
[2018-11-30] MEDS: Amoxicillin/Potassium Clav 875 MG TAB PO SCH ×2 (08:54→20:38)
[2018-11-30] MEDS: Cyclobenzaprine 10 MG TAB PO SCH ×3 (08:54→20:37)
[2018-11-30] MEDS: guaiFENesin ER 600 MG TAB PO SCH ×2 (08:54→20:38)
[2018-11-30] MEDS: Losartan 25 MG TAB PO SCH (08:54)
[2018-11-30] MEDS: metFORMIN 500 MG TAB PO SCH ×2 (08:54→16:56)
[2018-11-30] MEDS: Gabapentin 300 MG CAP PO SCH ×3 (08:54→20:38)
[2018-11-30] MEDS: Venlafaxine HCl XR 150 MG CAP PO SCH (08:54)
[2018-11-30] MEDS: Lantus 1000 UNITS/10 ML VIAL SC SCH (08:55)
[2018-11-30] MEDS: Nystatin 500,000 UNITS/5 ML UDCUP SSW SCH ×4 (08:55→20:39)
[2018-11-30] MEDS: HumaLOG 300 UNITS/3 ML VIAL SC SCH ×3 (08:56→16:56)
[2018-11-30] MEDS: Clotrimazole 1% Cream 15 GM TUBE TOP SCH ×2 (09:04→20:40)
--- NOTE | 2018-11-30 10:09 | PRG ---
DATE OF SERVICE: 11/30/2018 SUBJECTIVE: The patient says she is feeling pretty good this morning. She said she had a good night. She is sitting up, eating her breakfast and has her oxygen own. OBJECTIVE: GENERAL: The patient is alert, appears very comfortable, sitting in her bed. VITAL SIGNS: Show a temperature of 97.3, pulse 77, respirations 16, O2 saturation 98% on 3 L, blood pressure 128/60. LUNGS: Good breath sounds. There are some coarse rales at the posterior bases that diminish with deeper inspiration. HEART: Regular rate. EXTREMITIES: No edema. LABORATORY DATA: Labs shows an H and H of 9.1 and 28.4, white blood cell count 11,100 with 59% segs, 32% lymphocytes, and platelet count of 550,000. Her MCV was 86. Sodium 138, potassium 4.2, BUN 6, creatinine 0.74, GFR 77, glucose 197, albumin 2.8. The patient had a serum ferritin done on 11/24/2018, that was 83. Hemoglobin A1c was 6.6 on 11/16. ASSESSMENT: 1. Deconditioning and generalized weakness. a. Following recent hospitalization at [facility]. b. Hospitalized at [facility] from 11/17/2018 until 11/29/2018 for left lumbar radiculopathy and pneumonia and burning mouth syndrome, possible candidiasis. c. PT and OT initiated today 11/30. 2. Pneumonia. a. Resolving. 3. Pulmonary fibrosis. a. Complicated by chronic hypoxemia, requiring supplemental O2. 4. Diabetes mellitus, type 2, insulin requiring. a. Hemoglobin A1c 6.6 on 11/16/2018. 5. Hypothyroidism. 6. History of deep venous thrombosis. a. Status post IVC filter. b. On long-term anticoagulant with Xarelto. 7. Hyperlipidemia. 8. Left lumbar radiculopathy. a. Pain improved as of 11/30. 9. Obesity. 10. Nonambulatory. 11. Severe osteoarthritis, generalized. a. Status post right total knee replacement. b. Status post left total knee replacement, complicated by infection, requiring removal of hardware, long-term IV antibiotics, and placement with spacers, leaving her nonambulatory. 12. Obesity. 13. Anemia of chronic illness. a. Hemoglobin 9.1 PLAN: Continue present care. Job ID: [id number] [facility]
[2018-11-30] MEDS: HYDROcodone/Acetaminophen 5/325 mg Tablet PO PRN (10:27)
[2018-11-30] MEDS: Rivaroxaban 10 MG TAB PO SCH (20:37)
[2018-11-30] MEDS: Rosuvastatin 10 MG TAB PO SCH (20:38)
[2018-11-30] MEDS: Lidocaine 5% Patch TD SCH (20:39)
[2018-12-01] MEDS: Levothyroxine Sodium 125 MCG TAB PO SCH (05:46)
[2018-12-01] MEDS: HYDROcodone/Acetaminophen 5/325 mg Tablet PO PRN ×2 (06:24→21:41)
[2018-12-01] MEDS ORDERED: Bisacodyl 10 MG SUPP PR PRN (08:11)
[2018-12-01] MEDS: Clotrimazole 1% Cream 15 GM TUBE TOP SCH ×2 (08:11→21:26)
[2018-12-01] MEDS: Amoxicillin/Potassium Clav 875 MG TAB PO SCH ×2 (08:11→21:26)
[2018-12-01] MEDS: guaiFENesin ER 600 MG TAB PO SCH ×2 (08:11→21:25)
[2018-12-01] MEDS: Multivitamin W/ Minerals 1 TAB PO SCH (08:11)
[2018-12-01] MEDS: Losartan 25 MG TAB PO SCH (08:11)
[2018-12-01] MEDS: Gabapentin 300 MG CAP PO SCH ×3 (08:12→21:25)
[2018-12-01] MEDS: Cyclobenzaprine 10 MG TAB PO SCH ×3 (08:12→21:24)
[2018-12-01] MEDS: metFORMIN 500 MG TAB PO SCH ×2 (08:12→16:49)
[2018-12-01] MEDS: Venlafaxine HCl XR 150 MG CAP PO SCH (08:12)
[2018-12-01] MEDS: Lidocaine Patch Removal 1 EACH TOP SCH (08:12)
[2018-12-01] MEDS: Docusate 100 MG CAP PO SCH (08:12)
[2018-12-01] MEDS: Nystatin 500,000 UNITS/5 ML UDCUP SSW SCH ×4 (08:12→21:33)
[2018-12-01] MEDS: Lantus 1000 UNITS/10 ML VIAL SC SCH (08:13)
[2018-12-01] MEDS: HumaLOG 300 UNITS/3 ML VIAL SC SCH ×3 (08:14→16:49)
[2018-12-01] MEDS: Polyethylene Glycol 3350 17 GM Packet PO SCH (08:25)
[2018-12-01] MEDS: Senokot S 8.6-50 MG TAB PO SCH ×2 (08:25→21:23)
--- NOTE | 2018-12-01 08:58 | PRG ---
DATE OF SERVICE: 12/01/2018 SUBJECTIVE: The patient said she is having pain some in that leg. Pain extends from the buttock area down to the knee on the left side. This is from her lumbar radiculopathy. We will try to get a more pump, moist heat to that area to see if this offers some additional help. She is on the gabapentin and has pain medicine if needed. The patient's bowels have not been moving well. The patient said yesterday she did get up into a chair, enjoyed being up. OBJECTIVE: GENERAL: The patient is lying in bed. She is alert, talkative, appears in no acute distress. VITAL SIGNS: Her temperature is 98.7, pulse 90, respirations 16, O2 saturation 93% on room air, and blood pressure 138/63. LUNGS: Clear. HEART: Regular rate. EXTREMITIES: No edema. LABORATORY DATA: Her FBS yesterday morning was 172, this morning's is pending. ASSESSMENT: 1. Deconditioning and generalized weakness. a. Following recent hospitalization at [facility]. b. Hospitalized at [facility] from 11/17/2018 until 11/29/2018 for left lumbar radiculopathy and pneumonia and burning mouth syndrome, possible candidiasis. c. Yesterday, set up into a chair for a while, bed mobility improved as of 12/01. 2. Pneumonia. a. Clinically resolved as of 12/01. 3. Pulmonary fibrosis. a. Complicated by chronic hypoxemia, requiring supplemental O2. 4. Diabetes mellitus, type 2, insulin requiring. a. Hemoglobin A1c 6.6 on 11/16/2018. 5. Hypothyroidism. 6. History of deep venous thrombosis. a. Status post IVC filter. b. On long-term anticoagulant with Xarelto. 7. Hyperlipidemia. 8. Left lumbar radiculopathy. a. Pain improved as of 11/30. 9. Obesity. 10. Nonambulatory. 11. Severe osteoarthritis, generalized. a. Status post right total knee replacement. b. Status post left total knee replacement, complicated by infection, requiring removal of hardware, long-term IV antibiotics, and placement with spacers, leaving her nonambulatory. 12. Obesity. 13. Anemia of chronic illness. a. Hemoglobin 9.1 14. Constipation. PLAN: Continue present care. Utilize again more pump on the back or the leg as needed. We will use the MiraLAX daily. Stop Colace and add Senokot-S p.r.n. and Dulcolax suppository as needed. Continue PT and OT. Job ID: [id number] MTDD
[2018-12-01] MEDS: Rosuvastatin 10 MG TAB PO SCH (21:23)
[2018-12-01] MEDS: Rivaroxaban 10 MG TAB PO SCH (21:25)
[2018-12-01] MEDS: Lidocaine 5% Patch TD SCH (21:26)
[2018-12-02] MEDS: Levothyroxine Sodium 125 MCG TAB PO SCH (05:03)
[2018-12-02] MEDS ORDERED: guaiFENesin/Codeine Phosphate 100 mg/10 mg 5 ml UD Cup ONE ×2 (06:08→16:50)
[2018-12-02] MEDS: guaiFENesin/Codeine Phosphate 100 mg/10 mg 5 ml UD Cup PO PRN ×2 (06:15→16:53)
[2018-12-02] MEDS: HumaLOG 300 UNITS/3 ML VIAL SC SCH ×3 (07:59→16:54)
[2018-12-02] MEDS: metFORMIN 500 MG TAB PO SCH ×2 (08:01→16:54)
[2018-12-02] MEDS: HYDROcodone/Acetaminophen 5/325 mg Tablet PO PRN ×2 (08:44→18:27)
[2018-12-02] MEDS: Polyethylene Glycol 3350 17 GM Packet PO SCH (08:47)
[2018-12-02] MEDS: Multivitamin W/ Minerals 1 TAB PO SCH (08:50)
[2018-12-02] MEDS: Senokot S 8.6-50 MG TAB PO SCH ×2 (08:50→20:55)
[2018-12-02] MEDS: Amoxicillin/Potassium Clav 875 MG TAB PO SCH ×2 (08:50→20:51)
[2018-12-02] MEDS: Losartan 25 MG TAB PO SCH (08:50)
[2018-12-02] MEDS: Gabapentin 300 MG CAP PO SCH ×3 (08:50→20:54)
[2018-12-02] MEDS: Venlafaxine HCl XR 150 MG CAP PO SCH (08:50)
[2018-12-02] MEDS: guaiFENesin ER 600 MG TAB PO SCH ×2 (08:50→20:53)
[2018-12-02] MEDS: Clotrimazole 1% Cream 15 GM TUBE TOP SCH ×2 (08:51→21:31)
[2018-12-02] MEDS: Cyclobenzaprine 10 MG TAB PO SCH ×3 (08:51→20:56)
[2018-12-02] MEDS: Nystatin 500,000 UNITS/5 ML UDCUP SSW SCH ×4 (08:53→20:56)
[2018-12-02] MEDS: Lidocaine Patch Removal 1 EACH TOP SCH (08:53)
[2018-12-02] MEDS: Lantus 1000 UNITS/10 ML VIAL SC SCH (08:53)
[2018-12-02] MEDS: Rosuvastatin 10 MG TAB PO SCH (20:55)
[2018-12-02] MEDS: Rivaroxaban 10 MG TAB PO SCH (20:55)
[2018-12-02] MEDS: Lidocaine 5% Patch TD SCH (20:57)
[2018-12-03] MEDS: HYDROcodone/Acetaminophen 5/325 mg Tablet PO PRN ×2 (01:38→15:14)
[2018-12-03] MEDS: Levothyroxine Sodium 125 MCG TAB PO SCH (06:19)
[2018-12-03] MEDS: HumaLOG 300 UNITS/3 ML VIAL SC SCH ×3 (09:27→17:29)
[2018-12-03] MEDS: Multivitamin W/ Minerals 1 TAB PO SCH (09:28)
[2018-12-03] MEDS: metFORMIN 500 MG TAB PO SCH ×2 (09:28→17:27)
[2018-12-03] MEDS: Venlafaxine HCl XR 150 MG CAP PO SCH (09:28)
[2018-12-03] MEDS: Senokot S 8.6-50 MG TAB PO SCH ×2 (09:28→21:48)
[2018-12-03] MEDS: guaiFENesin ER 600 MG TAB PO SCH ×2 (09:28→21:49)
[2018-12-03] MEDS: Amoxicillin/Potassium Clav 875 MG TAB PO SCH ×2 (09:28→21:48)
[2018-12-03] MEDS: Losartan 25 MG TAB PO SCH (09:28)
[2018-12-03] MEDS: Cyclobenzaprine 10 MG TAB PO SCH ×3 (09:29→21:49)
[2018-12-03] MEDS: Nystatin 500,000 UNITS/5 ML UDCUP SSW SCH ×4 (09:29→21:49)
[2018-12-03] MEDS: Gabapentin 300 MG CAP PO SCH ×3 (09:29→21:49)
[2018-12-03] MEDS: Clotrimazole 1% Cream 15 GM TUBE TOP SCH ×2 (09:29→21:44)
[2018-12-03] MEDS: Polyethylene Glycol 3350 17 GM Packet PO SCH (09:29)
[2018-12-03] MEDS: Lantus 1000 UNITS/10 ML VIAL SC SCH (10:10)
[2018-12-03] MEDS: Lidocaine Patch Removal 1 EACH TOP SCH (10:10)
[2018-12-03] MEDS: Rivaroxaban 10 MG TAB PO SCH (21:48)
[2018-12-03] MEDS: Rosuvastatin 10 MG TAB PO SCH (21:49)
[2018-12-03] MEDS: Lidocaine 5% Patch TD SCH (21:49)
[2018-12-04] MEDS: Levothyroxine Sodium 125 MCG TAB PO SCH (05:47)
[2018-12-04] MEDS: metFORMIN 500 MG TAB PO SCH ×2 (08:07→16:26)
[2018-12-04] MEDS: HumaLOG 300 UNITS/3 ML VIAL SC SCH ×3 (08:07→16:26)
[2018-12-04] MEDS: Cyclobenzaprine 10 MG TAB PO SCH ×3 (09:24→21:34)
[2018-12-04] MEDS: Amoxicillin/Potassium Clav 875 MG TAB PO SCH (09:24)
[2018-12-04] MEDS: guaiFENesin ER 600 MG TAB PO SCH ×2 (09:25→21:34)
[2018-12-04] MEDS: Gabapentin 300 MG CAP PO SCH ×3 (09:25→21:34)
[2018-12-04] MEDS: Lantus 1000 UNITS/10 ML VIAL SC SCH (09:25)
[2018-12-04] MEDS: Lidocaine Patch Removal 1 EACH TOP SCH (09:26)
[2018-12-04] MEDS: Losartan 25 MG TAB PO SCH (09:27)
[2018-12-04] MEDS: Nystatin 500,000 UNITS/5 ML UDCUP SSW SCH ×4 (09:28→21:36)
[2018-12-04] MEDS: Multivitamin W/ Minerals 1 TAB PO SCH (09:28)
[2018-12-04] MEDS: Polyethylene Glycol 3350 17 GM Packet PO SCH ×2 (09:29→09:35)
[2018-12-04] MEDS: Senokot S 8.6-50 MG TAB PO SCH ×3 (09:29→21:36)
[2018-12-04] MEDS: Venlafaxine HCl XR 150 MG CAP PO SCH (09:29)
[2018-12-04] MEDS: Clotrimazole 1% Cream 15 GM TUBE TOP SCH ×2 (09:56→21:34)
[2018-12-04] MEDS: HYDROcodone/Acetaminophen 5/325 mg Tablet PO PRN (10:15)
[2018-12-04] MEDS ORDERED: guaiFENesin/Codeine Phosphate 100 mg/10 mg 5 ml UD Cup ONE ×2 (10:52)
[2018-12-04] MEDS: guaiFENesin/Codeine Phosphate 100 mg/10 mg 5 ml UD Cup PO PRN (10:55)
--- NOTE | 2018-12-04 11:49 | RAD ---
Portable chest radiograph: 12/04/2018 COMPARISON: 11/17/2018 HISTORY: Shortness of breath FINDINGS: Coarse increased linear interstitial density noted in bilateral perihilar regions and both lung bases. There is superimposed hazy increased density again noted in the left lung base obscuring the left heart border and left hemidiaphragm, evidence of volume loss and bronchiectasis. N o pneumothorax. Left base is not optimally assessed secondary to body habitus and prominence of cardiac silhouette. IMPRESSION: Chronic findings as described above.
[2018-12-04] MEDS ORDERED: predniSONE 20 MG TAB PO SCH (12:00)
[2018-12-04] MEDS ORDERED: Dextrose 5% in Water 1,000 ML IV PRN (21:03)
[2018-12-04] MEDS ORDERED: Dextrose 50% Abboject 50 ML SYRINGE IVP PRN (21:03)
[2018-12-04] MEDS: Lidocaine 5% Patch TD SCH (21:35)
[2018-12-04] MEDS: Rivaroxaban 10 MG TAB PO SCH (21:36)
[2018-12-04] MEDS: Rosuvastatin 10 MG TAB PO SCH (21:36)
[2018-12-04] MEDS: HumaLOG 300 UNITS/3 ML VIAL SC PRN (21:37)
[2018-12-05 05:43] LABS: Anion Gap 15 mmol/L (10-20); BUN (Urea Nitrogen) 9 mg/dL (9.8-20.1); Calc. Creatinine Clearance 89 mL/min (70-130); Calcium 9.6 mg/dL (7.8-10.44); Carbon Dioxide 27 mmol/L (23-31); Chloride 99 mmol/L (98-107); Estimated GFR-MDRD 66; Glucose 345 mg/dL (83-110); Potassium 5.5 mmol/L (3.5-5.1); Sodium 135 mmol/L (136-145)
[2018-12-05] MEDS: Levothyroxine Sodium 125 MCG TAB PO SCH (05:51)
[2018-12-05 06:03] LABS: %Neutrophils 73.2 % (42.0-75.0); Hemoglobin 10.4 g/dL (12.0-16.0); Mean Corpuscular HGB CONC 30.4 g/dL (32.0-36.0); Mean Corpuscular Hemoglobin 27.7 pg (27.0-31.0); Mean Platelet Volume 5.7 fL (7.4-10.4); Platelet Count 507 thou/uL (130-400); RBC Distribution Width 14.5 % (11.5-14.5); Red Blood Cell (RBC) Count 3.77 mill/uL (4.20-5.40)
[2018-12-05 06:04] LABS: #Basophils 0.1 thou/uL (0.0-0.2); #Lymphocytes 3.8 thou/uL (1.20-3.40); #Neutrophils 11.7 thou/uL (1.40-6.50); %Basophils 0.4 % (0.0-1.0); %Lymphocytes 23.7 % (21.0-51.0); %Monocytes 2.6 % (0.0-10.0)
[2018-12-05 06:06] LABS: #Monocytes 0.4 thou/uL (0.11-0.59)
[2018-12-05] MEDS: predniSONE 20 MG TAB PO SCH (07:58)
[2018-12-05] MEDS: metFORMIN 500 MG TAB PO SCH ×2 (07:59→17:10)
[2018-12-05] MEDS: HumaLOG 300 UNITS/3 ML VIAL SC SCH ×3 (07:59→17:11)
[2018-12-05] MEDS: HumaLOG 300 UNITS/3 ML VIAL SC PRN ×4 (08:00→21:31)
[2018-12-05] MEDS: Gabapentin 300 MG CAP PO SCH ×3 (09:13→21:22)
[2018-12-05] MEDS: Cyclobenzaprine 10 MG TAB PO SCH ×3 (09:13→21:22)
[2018-12-05] MEDS: guaiFENesin ER 600 MG TAB PO SCH ×2 (09:13→21:22)
[2018-12-05] MEDS: Lantus 1000 UNITS/10 ML VIAL SC SCH (09:13)
[2018-12-05] MEDS: Lidocaine Patch Removal 1 EACH TOP SCH (09:14)
[2018-12-05] MEDS: Losartan 25 MG TAB PO SCH (09:15)
[2018-12-05] MEDS: Polyethylene Glycol 3350 17 GM Packet PO SCH (09:16)
[2018-12-05] MEDS: Venlafaxine HCl XR 150 MG CAP PO SCH (09:16)
[2018-12-05] MEDS: Senokot S 8.6-50 MG TAB PO SCH ×2 (09:16→21:26)
[2018-12-05] MEDS: Nystatin 500,000 UNITS/5 ML UDCUP SSW SCH ×4 (09:16→21:26)
[2018-12-05] MEDS: Multivitamin W/ Minerals 1 TAB PO SCH (09:16)
[2018-12-05] MEDS: Clotrimazole 1% Cream 15 GM TUBE TOP SCH ×2 (09:21→21:50)
[2018-12-05] MEDS: guaiFENesin/Codeine Phosphate 100 mg/10 mg 5 ml UD Cup PO PRN (12:34)
[2018-12-05] MEDS: Lidocaine 5% Patch TD SCH (21:25)
[2018-12-05] MEDS: Rosuvastatin 10 MG TAB PO SCH (21:26)
[2018-12-05] MEDS: Rivaroxaban 10 MG TAB PO SCH (21:26)
[2018-12-05] MEDS: HYDROcodone/Acetaminophen 5/325 mg Tablet PO PRN (21:52)
[2018-12-06 05:33] LABS: Anion Gap 14 mmol/L (10-20); BUN (Urea Nitrogen) 13 mg/dL (9.8-20.1); Calc. Creatinine Clearance 82 mL/min (70-130); Calcium 9.8 mg/dL (7.8-10.44); Carbon Dioxide 28 mmol/L (23-31); Chloride 99 mmol/L (98-107); Estimated GFR-MDRD 60; Glucose 370 mg/dL (83-110); Potassium 5.3 mmol/L (3.5-5.1); Sodium 136 mmol/L (136-145)
[2018-12-06] MEDS: Levothyroxine Sodium 125 MCG TAB PO SCH (05:39)
[2018-12-06 05:48] LABS: #Basophils 0.1 thou/uL (0.0-0.2); #Monocytes 0.9 thou/uL (0.11-0.59); #Neutrophils 13.8 thou/uL (1.40-6.50); %Basophils 0.3 % (0.0-1.0); %Lymphocytes 25.3 % (21.0-51.0); %Monocytes 4.3 % (0.0-10.0); %Neutrophils 70.1 % (42.0-75.0); Hemoglobin 10.2 g/dL (12.0-16.0); Mean Corpuscular HGB CONC 30.3 g/dL (32.0-36.0); Mean Corpuscular Hemoglobin 27.7 pg (27.0-31.0); Mean Corpuscular Volume 91.2 fL (78.0-98.0); Mean Platelet Volume 5.9 fL (7.4-10.4); Platelet Count 494 thou/uL (130-400); RBC Distribution Width 15.1 % (11.5-14.5); White Blood Cell (WBC) Count 19.7 thou/uL (4.8-10.8)
--- NOTE | 2018-12-06 07:51 | PRG ---
DATE OF SERVICE: 12/05/2018 SUBJECTIVE: The patient says she feels a lot better today. She is not having any wheezing or cough. Yesterday afternoon, the wheezing had resolved. Her blood sugars began running higher as results of the prednisone and she was placed on a sliding scale in addition to her a.c. Humalog and also on sliding scale at bedtime. OBJECTIVE: GENERAL: The patient is alert, smiling, appears very comfortable, and in no distress. VITAL SIGNS: Show a temperature of 97.3, pulse 76, respirations 18, O2 saturation 91% on 3.5 L, blood pressure 115/56. LUNGS: Good breath sounds. No wheezes or rhonchi. No rales. HEART: Regular rate. EXTREMITIES: No edema. DIAGNOSTIC STUDIES: Her chest x-ray yesterday was stable, showed no infiltrate or evidence of any failure. Her lab showed hemoglobin and hematocrit of 10.4 and 34.3, white cell count was up to 16,000 with 73% segs, 24% lymphocytes, and platelet count of 507. Sodium 135, potassium 5.5, BUN 9, creatinine 0.84, glucose 345. ASSESSMENT: 1. Pulmonary fibrosis: a. Complicated by chronic hypoxemia, requiring supplemental O2. b. Complicated by acute exacerbation with an asthmatic bronchitis, improved with no wheezing and improvement in the O2 saturation as of 12/05/2018. 2. Diabetes mellitus, type 2, insulin requiring. a. Glucose running higher with the addition of the prednisone. 3. Generalized weakness. PLAN: We will continue present care. The patient looks much better. We will recheck on her potassium in the morning since it was elevated. Job ID: [id number] [facility]
[2018-12-06] MEDS: metFORMIN 500 MG TAB PO SCH ×2 (08:00→17:12)
[2018-12-06] MEDS: predniSONE 20 MG TAB PO SCH (08:00)
[2018-12-06] MEDS: HumaLOG 300 UNITS/3 ML VIAL SC PRN ×4 (08:05→21:04)
[2018-12-06] MEDS: HumaLOG 300 UNITS/3 ML VIAL SC SCH ×3 (08:07→16:37)
--- NOTE | 2018-12-06 08:42 | PRG ---
DATE OF SERVICE: 12/02/2018 SUBJECTIVE: The patient says she is doing better. She said she did use again more pump some for the moist heat and that did help some. She sat up for quite a while in a geriatric chair and said the transfers went pretty easy. This morning, she is feeling good. Her breathing is doing good. OBJECTIVE: GENERAL: The patient is lying in bed with her oxygen on. She looks comfortable. She is talkative, and appears in no distress. VITAL SIGNS: Show a temperature of 97.3, pulse 74, respirations 18, O2 saturation 99% on 3.5 L, blood pressure 117/55. LUNGS: There was some little rales at the bases, which were probably chronic from her pulmonary fibrosis. HEART: Regular rate. EXTREMITIES: No edema. LABORATORY DATA: Shows an FBS this morning of 238. ASSESSMENT: 1. Deconditioning and generalized weakness. a. Following recent hospitalization at [facility]. b. Hospitalized at [facility] from 11/17/2018 until 11/29/2018 for left lumbar radiculopathy and pneumonia and burning mouth syndrome, possible candidiasis. c. Improved, tolerating sitting up in the demetrice chair for longer periods. Able to transfer little easier as of 12/02. 2. Pneumonia. a. Clinically resolved as of 12/01. 3. Pulmonary fibrosis. a. Complicated by chronic hypoxemia, requiring supplemental O2. b. Stable as of 12/02. 4. Diabetes mellitus, type 2, insulin requiring. a. Hemoglobin A1c 6.6 on 11/16/2018. 5. Hypothyroidism. 6. History of deep venous thrombosis. a. Status post IVC filter. b. On long-term anticoagulant with Xarelto. 7. Hyperlipidemia. 8. Left lumbar radiculopathy. a. Pain improved as of 12/02. 9. Obesity. 10. Nonambulatory. 11. Severe osteoarthritis, generalized. a. Status post right total knee replacement. b. Status post left total knee replacement, complicated by infection, requiring removal of hardware, long-term IV antibiotics, and placement with spacers, leaving her nonambulatory. 12. Obesity. 13. Anemia of chronic illness. a. Hemoglobin 9.1 14. Constipation. PLAN: Continue present care. Continue PT and OT. Job ID: [id number] [facility]
--- NOTE | 2018-12-06 08:44 | PRG ---
DATE OF SERVICE: 12/03/2018 SUBJECTIVE: The patient says she is doing good this morning. She has had some trouble with pain in that left leg during the night. Otherwise, this morning, she is feeling good. Yesterday, she sat up for about a 4- to 5-hour period in her Edith chair and seemed to tolerate this just fine. OBJECTIVE: GENERAL: The patient is sleeping, but easily aroused and now talkative and appears very comfortable. VITAL SIGNS: Her vital signs show temperature 97.9, pulse 88, respirations 16, O2 saturation is 99% on 3 L, and blood pressure 118/58. LUNGS: Clear. HEART: Regular rate. EXTREMITIES: No edema. LABORATORY DATA: FBS yesterday morning was 238; this morning's is pending. Her glucometers have been mainly ranging from about 180s to 220. ASSESSMENT: 1. Deconditioning and generalized weakness. a. Following recent hospitalization at [facility]. b. Hospitalized at [facility] from 11/17/2018 until 11/29/2018 for left lumbar radiculopathy and pneumonia and burning mouth syndrome, possible candidiasis. c. Improved, sitting up in a Edith chair for longer periods and transferring easier as of 12/03. 2. Pneumonia. a. Clinically resolved as of 12/01. 3. Pulmonary fibrosis. a. Complicated by chronic hypoxemia, requiring supplemental O2. 4. Diabetes mellitus, type 2, insulin requiring. a. Hemoglobin A1c 6.6 on 11/16/2018. 5. Hypothyroidism. 6. History of deep venous thrombosis. a. Status post IVC filter. b. On long-term anticoagulant with Xarelto. 7. Hyperlipidemia. 8. Left lumbar radiculopathy. a. Improved, but still has intermittent pain as of 12/03. 9. Obesity. 10. Nonambulatory. 11. Severe osteoarthritis, generalized. a. Status post right total knee replacement. b. Status post left total knee replacement, complicated by infection, requiring removal of hardware, long-term IV antibiotics, and placement with spacers, leaving her nonambulatory. 12. Obesity. 13. Anemia of chronic illness. a. Hemoglobin 9.1 14. Constipation. PLAN: We will continue the present care. Continue PT and OT. We will increase her Lantus to 10 units subcu daily. Job ID: [id number] [facility]
--- NOTE | 2018-12-06 08:46 | PRG ---
DATE OF SERVICE: 12/04/2018 SUBJECTIVE: This morning, the patient said she was coughing and having some wheezing. She says at home this happens periodically and she uses neb treatments that help. The nurse had examined her early this morning. Her lungs were clear. Now she reports she is having some wheezing, a little drop in her O2 saturation. OBJECTIVE: GENERAL: The patient is lying in bed, is not in any acute distress , but does have frequent cough. VITAL SIGNS: Show a temperature of 97.7, pulse 74, respirations are 16, O2 saturation earlier this morning was 96 on 3.5 L, this had dropped to 89 prior to her neb treatment, blood pressure 120/58. LUNGS: The patient has some expiratory wheeze and rhonchi heard throughout the chest. HEART: Regular rate. EXTREMITIES: No edema. LABORATORY DATA: FBS this morning was 228. Lantus was increased to 10 units yesterday. A chest x-ray ordered and pending. ASSESSMENT: 1. Deconditioning and generalized weakness. a. Following recent hospitalization at [facility]. b. Hospitalized at [facility] from 11/17/2018 until 11/29/2018 for left lumbar radiculopathy and pneumonia and burning mouth syndrome, possible candidiasis. c. Improved sitting up in a Edith chair for longer and able to assist with transfers as of 12/04. 2. Pneumonia. a. Clinically resolved as of 12/01. 3. Pulmonary fibrosis. a. Complicated by chronic hypoxemia, requiring supplemental O2. b. Complicated by acute exacerbation with asthmatic bronchitis as of 12/04. 4. Diabetes mellitus, type 2, insulin requiring. a. Hemoglobin A1c 6.6 on 11/16/2018. 5. Hypothyroidism. 6. History of deep venous thrombosis. a. Status post IVC filter. b. On long-term anticoagulant with Xarelto. 7. Hyperlipidemia. 8. Left lumbar radiculopathy. a. Pain improved as of 11/30. 9. Obesity. 10. Nonambulatory. 11. Severe osteoarthritis, generalized. a. Status post right total knee replacement. b. Status post left total knee replacement, complicated by infection, requiring removal of hardware, long-term IV antibiotics, and placement with spacers, leaving her nonambulatory. 12. Obesity. 13. Anemia of chronic illness. a. Hemoglobin 9.1 14. Constipation. PLAN: The patient has developed some wheezing and some rhonchi, probably from asthmatic bronchitis. We will x-ray her since she has recently had pneumonia. We will continue her antibiotics that she is on Omnicef. We will add Mucinex nebulizer treatments q.i.d. and every [address] her on prednisone on a gradual sliding scale. Job ID: [id number] [facility]
[2018-12-06] MEDS: Venlafaxine HCl XR 150 MG CAP PO SCH (09:26)
[2018-12-06] MEDS: Multivitamin W/ Minerals 1 TAB PO SCH (09:26)
[2018-12-06] MEDS: Nystatin 500,000 UNITS/5 ML UDCUP SSW SCH ×4 (09:26→21:03)
[2018-12-06] MEDS: Senokot S 8.6-50 MG TAB PO SCH ×2 (09:26→21:03)
[2018-12-06] MEDS: guaiFENesin ER 600 MG TAB PO SCH ×2 (09:27→21:02)
[2018-12-06] MEDS: Losartan 25 MG TAB PO SCH (09:27)
[2018-12-06] MEDS: Cyclobenzaprine 10 MG TAB PO SCH ×3 (09:28→21:02)
[2018-12-06] MEDS: Clotrimazole 1% Cream 15 GM TUBE TOP SCH ×2 (09:28→21:02)
[2018-12-06] MEDS: Polyethylene Glycol 3350 17 GM Packet PO SCH (09:29)
[2018-12-06] MEDS: Lidocaine Patch Removal 1 EACH TOP SCH (09:30)
[2018-12-06] MEDS: Gabapentin 300 MG CAP PO SCH ×3 (09:43→21:02)
[2018-12-06] MEDS: Lantus 1000 UNITS/10 ML VIAL SC SCH (09:48)
[2018-12-06] MEDS: Lidocaine 5% Patch TD SCH (21:03)
[2018-12-06] MEDS: Rivaroxaban 10 MG TAB PO SCH (21:03)
[2018-12-06] MEDS: Rosuvastatin 10 MG TAB PO SCH (21:03)
[2018-12-07] MEDS: Levothyroxine Sodium 125 MCG TAB PO SCH (05:39)
--- NOTE | 2018-12-07 07:26 | PRG ---
DATE OF SERVICE: 12/06/2018 SUBJECTIVE: The patient said she had a good night. She is feeling good today. She is not having any trouble with her breathing. OBJECTIVE: GENERAL: The patient is lying in bed with the head elevated. She is smiling, looks very comfortable. VITAL SIGNS: Show a temperature 97, pulse 89, respirations 18, O2 saturation 99 % on 3-1/2 L, blood pressure 136/63. LUNGS: Clear with good breath sounds. No wheezes, rhonchi, nor rales. HEART: Regular rate. EXTREMITIES: No edema. LABORATORY DATA: H and H of 10.2 and 33.7, white blood cell count 19,700 with 70% segs and 25% lymphocytes, and platelet count of 494,000. Sodium 136, potassium down to 5.3, BUN 13, creatinine 0.91, GFR 60, glucose 370, later glucose check at 7: 30 was 277. ASSESSMENT: 1. Deconditioning and generalized weakness. a. Following recent hospitalization at [facility]. b. Hospitalized at [facility] from 11/17/2018 until 11/29/2018 for left lumbar radiculopathy and pneumonia and burning mouth syndrome, possible candidiasis. c. Improved, tolerating sitting up in a geriatric chair and helping with transfers from chair to a bed as of 12/06. 2. Pneumonia. a. Resolving. 3. Pulmonary fibrosis. a. Complicated by chronic hypoxemia, requiring supplemental O2. b. Complicated by acute asthmatic bronchitis on 12/04/2018. I. Improved with lungs clear, no wheezing. Clear chest x-ray, as of . 4. Diabetes mellitus, type 2, insulin requiring. a. Recent increase in blood sugar secondary to the steroids. 5. Hypothyroidism. 6. History of deep venous thrombosis. a. Status post IVC filter. b. On long-term anticoagulant with Xarelto. 7. Hyperlipidemia. 8. Left lumbar radiculopathy. a. Improved as of 12/06. 9. Obesity. 10. Nonambulatory. 11. Severe osteoarthritis, generalized. a. Status post right total knee replacement. b. Status post left total knee replacement, complicated by infection, requiring removal of hardware, long-term IV antibiotics, and placement with spacers, leaving her nonambulatory. 12. Obesity. 13. Leukocytosis. a. Secondary to probably the steroids. PLAN: Overall, the patient is feeling better. She said she is coughing up some green sputum. Her lungs are remained clear. Chest x-ray from 12/04 was clear. We will continue present care. Continue PT/OT. We will reduce her prednisone to 20 mg a day. Continue neb treatments. Job ID: [id number] [facility]
[2018-12-07] MEDS: Polyethylene Glycol 3350 17 GM Packet PO SCH (08:16)
[2018-12-07] MEDS: Multivitamin W/ Minerals 1 TAB PO SCH (08:16)
[2018-12-07] MEDS: HumaLOG 300 UNITS/3 ML VIAL SC SCH ×3 (08:17→17:09)
[2018-12-07] MEDS: predniSONE 20 MG TAB PO SCH (08:17)
[2018-12-07] MEDS: metFORMIN 500 MG TAB PO SCH ×2 (08:17→16:20)
[2018-12-07] MEDS: HumaLOG 300 UNITS/3 ML VIAL SC PRN ×4 (08:18→21:36)
[2018-12-07] MEDS: Venlafaxine HCl XR 150 MG CAP PO SCH (08:19)
[2018-12-07] MEDS: guaiFENesin ER 600 MG TAB PO SCH ×2 (08:19→20:58)
[2018-12-07] MEDS: Cyclobenzaprine 10 MG TAB PO SCH ×3 (08:20→20:57)
[2018-12-07] MEDS: Senokot S 8.6-50 MG TAB PO SCH ×2 (08:20→20:59)
[2018-12-07] MEDS: Gabapentin 300 MG CAP PO SCH ×3 (08:20→20:59)
[2018-12-07] MEDS: Losartan 25 MG TAB PO SCH (08:21)
[2018-12-07] MEDS: Nystatin 500,000 UNITS/5 ML UDCUP SSW SCH ×4 (08:22→20:58)
[2018-12-07] MEDS: Lidocaine Patch Removal 1 EACH TOP SCH (08:22)
[2018-12-07] MEDS: Lantus 1000 UNITS/10 ML VIAL SC SCH (08:23)
[2018-12-07] MEDS: Clotrimazole 1% Cream 15 GM TUBE TOP SCH ×2 (08:31→20:56)
[2018-12-07] MEDS ORDERED: Sterile Water Irrigation 1,000 ML BOT ONE (10:54)
--- NOTE | 2018-12-07 13:37 | PRG ---
DATE OF SERVICE: 12/07/2018 SUBJECTIVE: The patient says she is feeling good this morning. She had a good night. She has already been around the physical therapy. She is up in a geriatric chair, eating breakfast. She states that her breathing is doing good. At home, she has to use her O2 continuous between 3 and 3.5 L/minute. OBJECTIVE: GENERAL: The patient is sitting up in a geriatric chair. She is alert, talkative, looks very comfortable, in no distress. VITAL SIGNS: Show temperature 97.5, pulse 72, respirations 16, O2 saturations 98 % on 3.5 L, blood pressure 120/57. LUNGS: Clear. HEART: Regular rate. EXTREMITIES: No edema. LABORATORY DATA: FBS this morning was 213. ASSESSMENT: 1. Deconditioning and generalized weakness. a. Following recent hospitalization at [facility]. b. Hospitalized at [facility] from 11/17/2018 until 11/29/2018 for left lumbar radiculopathy and pneumonia and burning mouth syndrome, possible candidiasis. c. Improved as of 12/07. 2. Pneumonia. a. Resolving. 3. Pulmonary fibrosis. a. Complicated by chronic hypoxemia, requiring supplemental O2. b. Complicated by acute asthmatic bronchitis on 12/04/2018. I. Improved. Lungs are clear. There is no wheezing. She remains afebrile and O2 saturations stable as of 12/07. 4. Diabetes mellitus, type 2, insulin requiring. a. Control improved, recent increase in reading secondary to the steroids as of 12/07. 5. Hypothyroidism. 6. History of deep venous thrombosis. a. Status post IVC filter. b. On long-term anticoagulant with Xarelto. 7. Hyperlipidemia. 8. Left lumbar radiculopathy. a. Improved as of 12/06. 9. Obesity. 10. Nonambulatory. 11. Severe osteoarthritis, generalized. a. Status post right total knee replacement. b. Status post left total knee replacement, complicated by infection, requiring removal of hardware, long-term IV antibiotics, and placement with spacers, leaving her nonambulatory. 12. Obesity. 13. Leukocytosis. a. Secondary to probably the steroids. PLAN: Continue present care. Continue PT and OT. [facility] [id number] [facility]
[2018-12-07] MEDS: HYDROcodone/Acetaminophen 5/325 mg Tablet PO PRN (16:15)
[2018-12-07] MEDS: Lidocaine 5% Patch TD SCH (20:58)
[2018-12-07] MEDS: Rivaroxaban 10 MG TAB PO SCH (20:58)
[2018-12-07] MEDS: Rosuvastatin 10 MG TAB PO SCH (20:59)
[2018-12-08] MEDS: Levothyroxine Sodium 125 MCG TAB PO SCH (05:23)
[2018-12-08] MEDS: Polyethylene Glycol 3350 17 GM Packet PO SCH (08:39)
[2018-12-08] MEDS: Nystatin 500,000 UNITS/5 ML UDCUP SSW SCH ×4 (08:40→21:16)
[2018-12-08] MEDS: guaiFENesin ER 600 MG TAB PO SCH ×2 (08:40→21:11)
[2018-12-08] MEDS: Losartan 25 MG TAB PO SCH (08:40)
[2018-12-08] MEDS: predniSONE 20 MG TAB PO SCH (08:40)
[2018-12-08] MEDS: Cyclobenzaprine 10 MG TAB PO SCH ×3 (08:40→21:15)
[2018-12-08] MEDS: Gabapentin 300 MG CAP PO SCH ×3 (08:40→21:12)
[2018-12-08] MEDS: Multivitamin W/ Minerals 1 TAB PO SCH (08:40)
[2018-12-08] MEDS: Senokot S 8.6-50 MG TAB PO SCH ×2 (08:41→21:13)
[2018-12-08] MEDS: metFORMIN 500 MG TAB PO SCH ×2 (08:41→16:38)
[2018-12-08] MEDS: Venlafaxine HCl XR 150 MG CAP PO SCH (08:41)
[2018-12-08] MEDS: HumaLOG 300 UNITS/3 ML VIAL SC SCH ×3 (08:45→16:39)
[2018-12-08] MEDS: Lantus 1000 UNITS/10 ML VIAL SC SCH (08:46)
[2018-12-08] MEDS: HumaLOG 300 UNITS/3 ML VIAL SC PRN ×4 (08:46→21:38)
[2018-12-08] MEDS: Clotrimazole 1% Cream 15 GM TUBE TOP SCH ×2 (08:46→21:17)
[2018-12-08] MEDS: Lidocaine Patch Removal 1 EACH TOP SCH (08:46)
--- NOTE | 2018-12-08 09:41 | PRG ---
DATE OF SERVICE: 12/08/2018 SUBJECTIVE: The patient says she is breathing normal for her. She said her left knee is more sore. She thinks it is little swollen. She thinks it is just from the physical therapy. Her sciatica pain had gotten a lot better. She starting to have just a mild resurgence of this. OBJECTIVE: GENERAL: The patient is sitting up in her bed. She is alert, appears comfortable, and in no distress. VITAL SIGNS: Her temp is 97.9, pulse 69, respirations 16, O2 saturation 98% on 3 L, blood pressure 136/61. LUNGS: Clear. HEART: Regular rate. EXTREMITIES: No edema. Left knee, there is no redness nor effusion present. Did not attempt to move this because her limb motion is limited in that knee. ASSESSMENT: 1. Deconditioning and generalized weakness. a. Following recent hospitalization at [facility]. b. Hospitalized at [facility] from 11/17/2018 until 11/29/2018 for left lumbar radiculopathy and pneumonia and burning mouth syndrome, possible candidiasis. c. Improved as of 12/08. 2. Pneumonia. a. Resolving. 3. Pulmonary fibrosis. a. Complicated by chronic hypoxemia, requiring supplemental O2. b. Complicated by acute asthmatic bronchitis on 12/04/2018. I. Resolving. Lungs were clear with no wheezing and she remains afebrile as of 12/08. 4. Diabetes mellitus, type 2, insulin requiring. a. Control improved, recent increase in reading secondary to the steroids as of 12/07. 5. Hypothyroidism. 6. History of deep venous thrombosis. a. Status post IVC filter. b. On long-term anticoagulant with Xarelto. 7. Hyperlipidemia. 8. Left lumbar radiculopathy. a. Improved as of 12/06. 9. Obesity. 10. Nonambulatory. 11. Severe osteoarthritis, generalized. a. Status post right total knee replacement. b. Status post left total knee replacement, complicated by infection, requiring removal of hardware, long-term IV antibiotics, and placement with spacers, leaving her nonambulatory. c. Some increased pain in the left knee, probably secondary to the physical therapy. 12. Obesity. 13. Leukocytosis. a. Secondary to probably the steroids. PLAN: Continue present care. The patient will apply more pump, providing moist heat to the left knee and will decrease the activities with that left knee. Job ID: [id number] [facility]
[2018-12-08] MEDS: HYDROcodone/Acetaminophen 5/325 mg Tablet PO PRN ×2 (09:49→16:40)
[2018-12-08] MEDS: Rosuvastatin 10 MG TAB PO SCH (21:14)
[2018-12-08] MEDS: Lidocaine 5% Patch TD SCH (21:15)
[2018-12-08] MEDS: Rivaroxaban 10 MG TAB PO SCH (21:15)
[2018-12-09] MEDS: Levothyroxine Sodium 125 MCG TAB PO SCH (05:51)
[2018-12-09] MEDS: Losartan 25 MG TAB PO SCH (08:38)
[2018-12-09] MEDS: guaiFENesin ER 600 MG TAB PO SCH ×2 (08:38→21:25)
[2018-12-09] MEDS: Senokot S 8.6-50 MG TAB PO SCH ×2 (08:38→21:27)
[2018-12-09] MEDS: Multivitamin W/ Minerals 1 TAB PO SCH (08:38)
[2018-12-09] MEDS: Venlafaxine HCl XR 150 MG CAP PO SCH (08:39)
[2018-12-09] MEDS: Polyethylene Glycol 3350 17 GM Packet PO SCH (08:39)
[2018-12-09] MEDS: Gabapentin 300 MG CAP PO SCH ×3 (08:39→21:26)
[2018-12-09] MEDS: Nystatin 500,000 UNITS/5 ML UDCUP SSW SCH ×4 (08:39→21:30)
[2018-12-09] MEDS: Lidocaine Patch Removal 1 EACH TOP SCH (08:39)
[2018-12-09] MEDS: Cyclobenzaprine 10 MG TAB PO SCH ×3 (08:39→21:28)
[2018-12-09] MEDS: Clotrimazole 1% Cream 15 GM TUBE TOP SCH ×2 (08:39→21:28)
[2018-12-09] MEDS: metFORMIN 500 MG TAB PO SCH ×2 (08:39→16:39)
[2018-12-09] MEDS: Lantus 1000 UNITS/10 ML VIAL SC SCH (08:40)
[2018-12-09] MEDS: HumaLOG 300 UNITS/3 ML VIAL SC SCH ×3 (08:40→16:40)
[2018-12-09] MEDS: HumaLOG 300 UNITS/3 ML VIAL SC PRN ×4 (08:40→21:31)
[2018-12-09] MEDS: predniSONE 20 MG TAB PO SCH (08:48)
--- NOTE | 2018-12-09 09:57 | PRG ---
DATE OF SERVICE: 12/09/2018 SUBJECTIVE: The patient states she is doing good. Left knee is still sore, maybe not as much as what it had been. OBJECTIVE: GENERAL: The patient is alert and appears comfortable. She is eating her breakfast. VITAL SIGNS: Show a temperature of 97.6, pulse 72, respirations 16, O2 saturation 98% on 3 L, blood pressure 127/62. LUNGS: Clear. HEART: Regular rate. EXTREMITIES: No edema. Left knee hurts to move. There is no effusion. No redness. LABORATORY DATA: Her FBS this morning was 184. ASSESSMENT: 1. Deconditioning and generalized weakness. a. Following recent hospitalization at [facility]. b. Hospitalized at [facility] from 11/17/2018 until 11/29/2018 for left lumbar radiculopathy and pneumonia and burning mouth syndrome, possible candidiasis. c. Improved as of 12/09. 2. Pneumonia. a. Resolving. 3. Pulmonary fibrosis. a. Complicated by chronic hypoxemia, requiring supplemental O2. b. Complicated by acute asthmatic bronchitis on 12/04/2018. I. Resolving. Lungs were clear with no wheezing and she remains afebrile as of 12/09. 4. Diabetes mellitus, type 2, insulin requiring. a. Control improved, recent increase in reading secondary to the steroids as of 12/07. 5. Hypothyroidism. 6. History of deep venous thrombosis. a. Status post IVC filter. b. On long-term anticoagulant with Xarelto. 7. Hyperlipidemia. 8. Left lumbar radiculopathy. a. Improved as of 12/09. 9. Obesity. 10. Nonambulatory. 11. Severe osteoarthritis, generalized. a. Status post right total knee replacement. b. Status post left total knee replacement, complicated by infection, requiring removal of hardware, long-term IV antibiotics, and placement with spacers, leaving her nonambulatory. c. Some increased pain in the left knee, probably secondary to the physical therapy. 12. Leukocytosis. a. Secondary to probably the steroids. PLAN: Continue present care. We will taper the prednisone down to 10 mg for 3 days, and then stop. Continue PT and OT. Job ID: [id number] [facility]
[2018-12-09 10:44] VITALS: BMI 37.0
[2018-12-09] MEDS ORDERED: Fluticasone Propionate Nasal Spray 16 gm Bottle NASAL SCH (16:30)
[2018-12-09] MEDS: Lidocaine 5% Patch TD SCH (21:27)
[2018-12-09] MEDS: Rivaroxaban 10 MG TAB PO SCH (21:28)
[2018-12-09] MEDS: Rosuvastatin 10 MG TAB PO SCH (21:28)
[2018-12-10 05:46] LABS: Anion Gap 15 mmol/L (10-20); BUN (Urea Nitrogen) 21 mg/dL (9.8-20.1); Calc. Creatinine Clearance 89 mL/min (70-130); Calcium 9.3 mg/dL (7.8-10.44); Carbon Dioxide 26 mmol/L (23-31); Chloride 100 mmol/L (98-107); Estimated GFR-MDRD 67; Glucose 204 mg/dL (83-110); Potassium 4.7 mmol/L (3.5-5.1); Sodium 136 mmol/L (136-145)
[2018-12-10] MEDS: Levothyroxine Sodium 125 MCG TAB PO SCH (05:48)
[2018-12-10 06:18] LABS: Mean Corpuscular Hemoglobin 27.4 pg (27.0-31.0); Mean Corpuscular Volume 92.2 fL (78.0-98.0); Red Blood Cell (RBC) Count 4.03 mill/uL (4.20-5.40); White Blood Cell (WBC) Count 17.2 thou/uL (4.8-10.8)
[2018-12-10 06:19] LABS: Manual Diff?? YES; Mean Corpuscular HGB CONC 29.7 g/dL (32.0-36.0); Mean Platelet Volume 5.7 fL (7.4-10.4); Platelet Count 416 thou/uL (130-400); RBC Distribution Width 15.9 % (11.5-14.5)
[2018-12-10 06:20] LABS: Eosinophils 1 % (0-10); Lymphocytes 37 % (21-51); MDiff Complete? YES; Monocytes 3 % (0-10); Neutrophil 57 % (42-75); Reactive Lymphocytes 2 % (0-10)
[2018-12-10] MEDS: HumaLOG 300 UNITS/3 ML VIAL SC SCH ×3 (08:57→17:50)
[2018-12-10] MEDS: HumaLOG 300 UNITS/3 ML VIAL SC PRN ×4 (08:58→21:37)
[2018-12-10] MEDS: Lantus 1000 UNITS/10 ML VIAL SC SCH (08:59)
[2018-12-10] MEDS: Fluticasone Propionate Nasal Spray 16 gm Bottle NASAL SCH (09:00)
[2018-12-10] MEDS: guaiFENesin ER 600 MG TAB PO SCH ×2 (09:01→21:35)
[2018-12-10] MEDS: metFORMIN 500 MG TAB PO SCH ×2 (09:01→17:50)
[2018-12-10] MEDS: Losartan 25 MG TAB PO SCH (09:01)
[2018-12-10] MEDS: Venlafaxine HCl XR 150 MG CAP PO SCH (09:02)
[2018-12-10] MEDS: Polyethylene Glycol 3350 17 GM Packet PO SCH (09:02)
[2018-12-10] MEDS: Cyclobenzaprine 10 MG TAB PO SCH ×3 (09:02→21:36)
[2018-12-10] MEDS: Multivitamin W/ Minerals 1 TAB PO SCH (09:02)
[2018-12-10] MEDS: Senokot S 8.6-50 MG TAB PO SCH ×2 (09:02→21:36)
[2018-12-10] MEDS: predniSONE 20 MG TAB PO SCH (09:02)
[2018-12-10] MEDS: Gabapentin 300 MG CAP PO SCH ×3 (09:02→21:36)
[2018-12-10] MEDS: Clotrimazole 1% Cream 15 GM TUBE TOP SCH ×2 (09:03→21:35)
[2018-12-10] MEDS: Lidocaine Patch Removal 1 EACH TOP SCH (09:03)
[2018-12-10] MEDS: HYDROcodone/Acetaminophen 5/325 mg Tablet PO PRN (11:59)
--- NOTE | 2018-12-10 13:59 | PRG ---
DATE OF SERVICE: 12/10/2018 SUBJECTIVE: Overall, the patient doing better. She is still having some sciatic pain on the left leg and some left knee pain. Moist heat from the Gaymar pump does help. She has developed a little irritation on the right buttock. Otherwise, she is doing good. OBJECTIVE: GENERAL: The patient is lying in bed, alert, appears comfortable, in no distress. VITAL SIGNS: Temperature 97.2, pulse 75, respirations 20, O2 saturation 100% on 3.5 L, and blood pressure 123/60. LUNGS: Clear. HEART: Regular rate. BUTTOCKS: Right buttock has a little mild irritation and superficial breaking of the skin that is going to linear. There is no surrounding redness. EXTREMITIES: No edema. The knee has no redness nor effusion. LABORATORY DATA: H and H of 11 and 37.2, white cell count is down to 17,200, with 57% segs, 37% lymphocytes, and platelet count of 416,000. Sodium 136, potassium 4.5, BUN 21, creatinine 0.83, GFR 67, glucose 204. ASSESSMENT: 1. Deconditioning and generalized weakness. a. Following recent hospitalization at [facility]. b. Hospitalized at [facility] from 11/17/2018 until 11/29/2018 for left lumbar radiculopathy and pneumonia and burning mouth syndrome, possible candidiasis. c. Improved as of 12/10. 2. Pneumonia. a. Resolved. 3. Pulmonary fibrosis. a. Complicated by chronic hypoxemia, requiring supplemental O2. b. Complicated by acute asthmatic bronchitis on 12/04/2018. I. Resolving. Lungs were clear with no wheezing and she remains afebrile as of 12/10. 4. Diabetes mellitus, type 2, insulin requiring. a. diabetic control, improving, recent increased secondary to the steroids as of 12/10. 5. Hypothyroidism. 6. History of deep venous thrombosis. a. Status post IVC filter. b. On long-term anticoagulant with Xarelto. 7. Hyperlipidemia. 8. Left lumbar radiculopathy. a. Improved as of 12/09. 9. Obesity. 10. Nonambulatory. 11. Severe osteoarthritis, generalized. a. Status post right total knee replacement. b. Status post left total knee replacement, complicated by infection, requiring removal of hardware, long-term IV antibiotics, and placement with spacers, leaving her nonambulatory. c. Some increased pain in the left knee, probably secondary to the physical therapy. 12. Leukocytosis. a. Secondary to probably the steroids. b. Improved, total white cell count down to 17,200. 13, Anemia. a.. Improved with hemoglobin of 11.0. PLAN: Continue present care. Continue the Gaymar pump for the moist heat on the knee. We will apply barrier ointment to the buttock over the little small area of irritation. Continue PT and OT. Job ID: [id number] [facility]
[2018-12-10] MEDS: Lidocaine 5% Patch TD SCH (21:36)
[2018-12-10] MEDS: Rosuvastatin 10 MG TAB PO SCH (21:36)
[2018-12-10] MEDS: Rivaroxaban 10 MG TAB PO SCH (21:36)
[2018-12-11] MEDS: Levothyroxine Sodium 125 MCG TAB PO SCH (05:27)
[2018-12-11] MEDS: Cyclobenzaprine 10 MG TAB PO SCH ×3 (08:41→21:29)
[2018-12-11] MEDS: Gabapentin 300 MG CAP PO SCH ×3 (08:41→21:29)
[2018-12-11] MEDS: Venlafaxine HCl XR 150 MG CAP PO SCH (08:41)
[2018-12-11] MEDS: Polyethylene Glycol 3350 17 GM Packet PO SCH (08:41)
[2018-12-11] MEDS: predniSONE 20 MG TAB PO SCH (08:41)
[2018-12-11] MEDS: Multivitamin W/ Minerals 1 TAB PO SCH (08:42)
[2018-12-11] MEDS: metFORMIN 500 MG TAB PO SCH ×2 (08:42→17:10)
[2018-12-11] MEDS: Losartan 25 MG TAB PO SCH (08:42)
[2018-12-11] MEDS: Senokot S 8.6-50 MG TAB PO SCH ×2 (08:42→21:30)
[2018-12-11] MEDS: guaiFENesin ER 600 MG TAB PO SCH ×2 (08:42→21:29)
[2018-12-11] MEDS: Fluticasone Propionate Nasal Spray 16 gm Bottle NASAL SCH (08:43)
[2018-12-11] MEDS: Lantus 1000 UNITS/10 ML VIAL SC SCH (08:44)
[2018-12-11] MEDS: HumaLOG 300 UNITS/3 ML VIAL SC SCH ×3 (08:46→17:11)
[2018-12-11] MEDS: HumaLOG 300 UNITS/3 ML VIAL SC PRN ×4 (08:46→21:33)
[2018-12-11] MEDS: Lidocaine Patch Removal 1 EACH TOP SCH (08:50)
[2018-12-11] MEDS: Clotrimazole 1% Cream 15 GM TUBE TOP SCH ×2 (08:57→21:28)
[2018-12-11] MEDS: HYDROcodone/Acetaminophen 5/325 mg Tablet PO PRN (09:01)
[2018-12-11] MEDS ORDERED: Ondansetron ODT 4 MG TAB PO PRN (14:19)
[2018-12-11] MEDS ORDERED: Clotrimazole 1% Cream 15 GM TUBE TOP SCH (21:00)
[2018-12-11] MEDS: Rivaroxaban 10 MG TAB PO SCH (21:29)
[2018-12-11] MEDS: Lidocaine 5% Patch TD SCH (21:30)
[2018-12-11] MEDS: Rosuvastatin 10 MG TAB PO SCH (21:33)
[2018-12-12] MEDS: Levothyroxine Sodium 125 MCG TAB PO SCH (05:12)
[2018-12-12] MEDS: HYDROcodone/Acetaminophen 5/325 mg Tablet PO PRN (08:03)
[2018-12-12] MEDS: metFORMIN 500 MG TAB PO SCH ×2 (08:04→16:49)
[2018-12-12] MEDS: HumaLOG 300 UNITS/3 ML VIAL SC SCH ×3 (08:05→16:53)
[2018-12-12] MEDS: HumaLOG 300 UNITS/3 ML VIAL SC PRN ×3 (08:06→16:54)
[2018-12-12] MEDS: Lantus 1000 UNITS/10 ML VIAL SC SCH (08:07)
[2018-12-12] MEDS: Fluticasone Propionate Nasal Spray 16 gm Bottle NASAL SCH (08:10)
[2018-12-12] MEDS: guaiFENesin ER 600 MG TAB PO SCH ×2 (08:10→20:49)
[2018-12-12] MEDS: Gabapentin 300 MG CAP PO SCH ×3 (08:11→20:49)
[2018-12-12] MEDS: Losartan 25 MG TAB PO SCH (08:11)
[2018-12-12] MEDS: Multivitamin W/ Minerals 1 TAB PO SCH (08:11)
[2018-12-12] MEDS: Venlafaxine HCl XR 150 MG CAP PO SCH (08:11)
[2018-12-12] MEDS: Cyclobenzaprine 10 MG TAB PO SCH ×3 (08:11→20:48)
[2018-12-12] MEDS: Senokot S 8.6-50 MG TAB PO SCH ×2 (08:11→20:50)
[2018-12-12] MEDS: Polyethylene Glycol 3350 17 GM Packet PO SCH (08:13)
[2018-12-12] MEDS: Clotrimazole 1% Cream 15 GM TUBE TOP SCH ×2 (08:13→20:48)
[2018-12-12] MEDS: Lidocaine Patch Removal 1 EACH TOP SCH (08:43)
[2018-12-12] MEDS: Rivaroxaban 10 MG TAB PO SCH (20:49)
[2018-12-12] MEDS: Lidocaine 5% Patch TD SCH (20:49)
[2018-12-12] MEDS: Rosuvastatin 10 MG TAB PO SCH (20:49)
[2018-12-13] MEDS: HYDROcodone/Acetaminophen 5/325 mg Tablet PO PRN ×3 (02:29→21:12)
[2018-12-13 05:42] LABS: #Basophils 0.1 thou/uL (0.0-0.2); #Eosinphils 0.6 thou/uL (0.0-0.7); #Lymphocytes 5.2 thou/uL (1.20-3.40); %Eosinophils 4.1 % (0.0-10.0); %Lymphocytes 37.7 % (21.0-51.0); %Monocytes 6.8 % (0.0-10.0); %Neutrophils 50.4 % (42.0-75.0); Hemoglobin 10.9 g/dL (12.0-16.0); Mean Corpuscular HGB CONC 29.7 g/dL (32.0-36.0); Mean Corpuscular Hemoglobin 27.4 pg (27.0-31.0); Mean Corpuscular Volume 92.2 fL (78.0-98.0); Mean Platelet Volume 5.9 fL (7.4-10.4); Platelet Count 367 thou/uL (130-400); RBC Distribution Width 15.6 % (11.5-14.5); Red Blood Cell (RBC) Count 3.98 mill/uL (4.20-5.40); White Blood Cell (WBC) Count 13.9 thou/uL (4.8-10.8)
[2018-12-13 05:45] LABS: Anion Gap 14 mmol/L (10-20); BUN (Urea Nitrogen) 22 mg/dL (9.8-20.1); Calc. Creatinine Clearance 91 mL/min (70-130); Calcium 8.7 mg/dL (7.8-10.44); Carbon Dioxide 22 mmol/L (23-31); Chloride 104 mmol/L (98-107); Estimated GFR-MDRD 69; Glucose 199 mg/dL (83-110); Potassium 5.4 mmol/L (3.5-5.1); Sodium 135 mmol/L (136-145)
--- NOTE | 2018-12-13 07:29 | PRG ---
DATE OF SERVICE: 12/11/2018 SUBJECTIVE: The patient says she is doing better today. Her leg feels better. Her bottom is still sore when she tries to sit on it. She has had a little early breakdown over the buttock. Dressing of this has been applied. We will add clotrimazole cream in the event there is any yeast involved with this. OBJECTIVE: GENERAL: The patient is lying in bed, looks very comfortable, in no distress. VITAL SIGNS: Show a temperature 97.2, pulse 74, respirations 16, O2 saturation 100% on 3 L, and blood pressure 129/61. LUNGS: Clear. HEART: Regular rate. EXTREMITIES: There is no edema. The left knee has no redness and no effusion. ASSESSMENT: 1. Deconditioning and generalized weakness. a. Following recent hospitalization at [facility]. b. Hospitalized at [facility] from 11/17/2018 until 11/29/2018 for left lumbar radiculopathy and pneumonia and burning mouth syndrome, possible candidiasis. c. Improved as of 12/11. 2. Pneumonia. a. Resolved. 3. Pulmonary fibrosis. a. Complicated by chronic hypoxemia, requiring supplemental O2. b. Complicated by acute asthmatic bronchitis on 12/04/2018. I. Resolved as of 12/11. 4. Diabetes mellitus, type 2, insulin requiring. a. Diabetic control should improve now she is off the steroids as of 12/11. 5. Hypothyroidism. 6. History of deep venous thrombosis. a. Status post IVC filter. b. On long-term anticoagulant with Xarelto. 7. Hyperlipidemia. 8. Left lumbar radiculopathy. a. Improved as of 12/11. 9. Obesity. 10. Nonambulatory. 11. Severe osteoarthritis, generalized. a. Status post right total knee replacement. b. Status post left total knee replacement, complicated by infection, requiring removal of hardware, long-term IV antibiotics, and placement with spacers, leaving her nonambulatory. c. Some increased pain in the left knee, probably secondary to the physical therapy. 12. Leukocytosis. a. Secondary to probably the steroids. b. Improved, total white cell count down to 17,200. 13, Anemia. a.. Improved with hemoglobin of 11.0. PLAN: Continue present care. Continue PT. We will use clotrimazole cream on the bottom twice today and also dressing over the little small area, where the skin is broken. Job ID: [id number] [facility]
[2018-12-13] MEDS: metFORMIN 500 MG TAB PO SCH ×2 (08:09→17:15)
[2018-12-13] MEDS: HumaLOG 300 UNITS/3 ML VIAL SC SCH ×3 (08:09→17:15)
[2018-12-13] MEDS: HumaLOG 300 UNITS/3 ML VIAL SC PRN ×3 (08:09→17:15)
[2018-12-13] MEDS: Lantus 1000 UNITS/10 ML VIAL SC SCH (08:10)
[2018-12-13] MEDS ORDERED: Gabapentin 300 MG CAP PO SCH (09:00)
--- NOTE | 2018-12-13 09:03 | PRG ---
DATE OF SERVICE: 12/13/2018 SUBJECTIVE: The patient said she is doing pretty good other than still having the sciatica pain in her left leg, it seemed to be like it is worse at night. OBJECTIVE: GENERAL: The patient is alert, appears comfortable, in no distress. VITAL SIGNS: Show a temperature of 98.9, pulse 90, respirations 16, O2 saturation 98% on 3.5 L of O2, blood pressure 116/57. LUNGS: Clear. HEART: Regular rate. EXTREMITIES: No edema. LABORATORY DATA: Shows H and H of 10.9 and 36.7, white cell count is down to 13.9 with 50% segs, 38% lymphocytes, platelet count of 367,000. Sodium is 135, potassium 5.4, BUN 22, creatinine 0.81, glucose 199. Yesterday's fasting blood sugar 174. ASSESSMENT: 1. Deconditioning and generalized weakness. a. Following recent hospitalization at [facility]. b. Hospitalized at [facility] from 11/17/2018 until 11/29/2018 for left lumbar radiculopathy and pneumonia and burning mouth syndrome, possible candidiasis. c. Improved as of 12/13. 2. Pneumonia. a. Resolved. 3. Pulmonary fibrosis. a. Complicated by chronic hypoxemia, requiring supplemental O2. b. Complicated by acute asthmatic bronchitis on 12/04/2018. I. Resolved as of 12/11. 4. Diabetes mellitus, type 2, insulin requiring. a. Diabetic control should improve now she is off the steroids as of 12/11. 5. Hypothyroidism. 6. History of deep venous thrombosis. a. Status post IVC filter. b. On long-term anticoagulant with Xarelto. 7. Hyperlipidemia. 8. Left lumbar radiculopathy. a. Still has intermittent radicular symptoms in the left leg as of 12/13. 9. Obesity. 10. Nonambulatory. 11. Severe osteoarthritis, generalized. a. Status post right total knee replacement. b. Status post left total knee replacement, complicated by infection, requiring removal of hardware, long-term IV antibiotics, and placement with spacers, leaving her nonambulatory. c. Some increased pain in the left knee, probably secondary to the physical therapy. 12. Leukocytosis. a. Secondary to probably the steroids. b. Improved white cell count of 13,400. 13. Anemia. a. Stable. PLAN: Continue present care. We will try increasing her gabapentin to 600 mg at bedtime and continue the 300 b.i.d. Continue PT. The patient thinks that her condition is getting back to pretty much what it was like at home. Tentatively , we will look to discharge her on Friday 12/15. Job ID: [id number] MTDD
[2018-12-13] MEDS: Cyclobenzaprine 10 MG TAB PO SCH ×3 (09:40→21:08)
[2018-12-13] MEDS: Senokot S 8.6-50 MG TAB PO SCH ×2 (09:40→21:10)
[2018-12-13] MEDS: Multivitamin W/ Minerals 1 TAB PO SCH (09:41)
[2018-12-13] MEDS: Polyethylene Glycol 3350 17 GM Packet PO SCH (09:41)
[2018-12-13] MEDS: guaiFENesin ER 600 MG TAB PO SCH ×2 (09:41→21:09)
[2018-12-13] MEDS: Venlafaxine HCl XR 150 MG CAP PO SCH (09:41)
[2018-12-13] MEDS: Losartan 25 MG TAB PO SCH (09:41)
[2018-12-13] MEDS: Fluticasone Propionate Nasal Spray 16 gm Bottle NASAL SCH (09:42)
[2018-12-13] MEDS: Lidocaine Patch Removal 1 EACH TOP SCH (09:42)
[2018-12-13] MEDS: Levothyroxine Sodium 125 MCG TAB PO SCH (09:44)
[2018-12-13] MEDS: Clotrimazole 1% Cream 15 GM TUBE TOP SCH ×2 (10:09→21:08)
[2018-12-13] MEDS: Rivaroxaban 10 MG TAB PO SCH (21:09)
[2018-12-13] MEDS: Gabapentin 300 MG CAP PO SCH (21:09)
[2018-12-13] MEDS: Lidocaine 5% Patch TD SCH (21:09)
[2018-12-13] MEDS: Rosuvastatin 10 MG TAB PO SCH (21:10)
[2018-12-14] MEDS: Levothyroxine Sodium 125 MCG TAB PO SCH (05:43)
[2018-12-14] MEDS: Losartan 25 MG TAB PO SCH (08:33)
[2018-12-14] MEDS: metFORMIN 500 MG TAB PO SCH ×2 (08:33→16:53)
[2018-12-14] MEDS: Lidocaine Patch Removal 1 EACH TOP SCH (08:34)
[2018-12-14] MEDS: guaiFENesin ER 600 MG TAB PO SCH ×2 (08:34→20:15)
[2018-12-14] MEDS: Cyclobenzaprine 10 MG TAB PO SCH ×3 (08:34→20:16)
[2018-12-14] MEDS: Senokot S 8.6-50 MG TAB PO SCH ×2 (08:34→20:28)
[2018-12-14] MEDS: Polyethylene Glycol 3350 17 GM Packet PO SCH (08:34)
[2018-12-14] MEDS: Multivitamin W/ Minerals 1 TAB PO SCH (08:34)
[2018-12-14] MEDS: Gabapentin 300 MG CAP PO SCH ×3 (08:34→20:13)
[2018-12-14] MEDS: Venlafaxine HCl XR 150 MG CAP PO SCH (08:34)
[2018-12-14] MEDS: Fluticasone Propionate Nasal Spray 16 gm Bottle NASAL SCH (08:35)
[2018-12-14] MEDS: Clotrimazole 1% Cream 15 GM TUBE TOP SCH ×2 (08:35→20:26)
[2018-12-14] MEDS: Lantus 1000 UNITS/10 ML VIAL SC SCH (08:43)
[2018-12-14] MEDS: HumaLOG 300 UNITS/3 ML VIAL SC SCH ×3 (08:44→16:53)
[2018-12-14] MEDS: HumaLOG 300 UNITS/3 ML VIAL SC PRN ×2 (08:44→12:01)
--- NOTE | 2018-12-14 09:01 | PRG ---
DATE OF SERVICE: 12/14/2018 SUBJECTIVE: The patient says she is doing good this morning. She still has intermittent pain in that left leg. Her gabapentin was increased last night to 600 mg. She is up this morning in a wheelchair, physical therapist is with her, and said she is doing good. She is getting back probably to her baseline prior to her hospitalization. She tolerates sitting up for long periods. She is able to assist with transferring by using the right leg. OBJECTIVE: GENERAL: The patient looks comfortable, sitting in the wheelchair. She appears in no distress. VITAL SIGNS: Temperature 97.9, pulse 76, respirations 16, O2 saturation 96% on 3.5 L, and blood pressure 127/59. LUNGS: Clear. HEART: Regular rate. EXTREMITIES: No edema. ASSESSMENT: 1. Deconditioning and generalized weakness. a. Following recent hospitalization at [facility]. b. Hospitalized at [facility] from 11/17/2018 until 11/29/2018 for left lumbar radiculopathy and pneumonia and burning mouth syndrome, possible candidiasis. c. Improved and probably approaching her baseline prior to hospitalization as of 12/14. 2. Pneumonia. a. Resolved. 3. Pulmonary fibrosis. a. Complicated by chronic hypoxemia, requiring supplemental O2. b. Complicated by acute asthmatic bronchitis on 12/04/2018. I. Resolved as of 12/11. 4. Diabetes mellitus, type 2, insulin requiring. a. Diabetic control should improve now she is off the steroids as of 12/11. 5. Hypothyroidism. 6. History of deep venous thrombosis. a. Status post IVC filter. b. On long-term anticoagulant with Xarelto. 7. Hyperlipidemia. 8. Left lumbar radiculopathy. a. Still has intermittent radicular symptoms in the left leg as of 12/13. 9. Obesity. 10. Nonambulatory. 11. Severe osteoarthritis, generalized. a. Status post right total knee replacement. b. Status post left total knee replacement, complicated by infection, requiring removal of hardware, long-term IV antibiotics, and placement with spacers, leaving her nonambulatory. c. Some increased pain in the left knee, probably secondary to the physical therapy. 12. Leukocytosis. a. Secondary to probably the steroids. b. Improved white cell count of 13,400. 13. Anemia. a. Stable. PLAN: Continue present care. Continue PT and OT. Anticipate discharge tomorrow. Job ID: [id number] MTDD
[2018-12-14] MEDS: HYDROcodone/Acetaminophen 5/325 mg Tablet PO PRN (20:10)
[2018-12-14] MEDS: Rosuvastatin 10 MG TAB PO SCH (20:15)
[2018-12-14] MEDS: Rivaroxaban 10 MG TAB PO SCH (20:16)
[2018-12-14] MEDS: Lidocaine 5% Patch TD SCH (20:19)
[2018-12-15] MEDS: Levothyroxine Sodium 125 MCG TAB PO SCH (06:08)
[2018-12-15] MEDS: HYDROcodone/Acetaminophen 5/325 mg Tablet PO PRN (06:11)
[2018-12-15 06:50] VITALS: TEMP 97
[2018-12-15] MEDS: guaiFENesin ER 600 MG TAB PO SCH (07:49)
[2018-12-15] MEDS: Venlafaxine HCl XR 150 MG CAP PO SCH (07:49)
[2018-12-15] MEDS: Losartan 25 MG TAB PO SCH (07:49)
[2018-12-15] MEDS: Multivitamin W/ Minerals 1 TAB PO SCH (07:49)
[2018-12-15] MEDS: Cyclobenzaprine 10 MG TAB PO SCH (07:49)
[2018-12-15] MEDS: Lidocaine Patch Removal 1 EACH TOP SCH (07:50)
[2018-12-15] MEDS: metFORMIN 500 MG TAB PO SCH (07:50)
[2018-12-15] MEDS: Gabapentin 300 MG CAP PO SCH (07:50)
[2018-12-15] MEDS: Senokot S 8.6-50 MG TAB PO SCH (07:50)
[2018-12-15] MEDS: Fluticasone Propionate Nasal Spray 16 gm Bottle NASAL SCH (07:50)
[2018-12-15] MEDS: Polyethylene Glycol 3350 17 GM Packet PO SCH (07:50)
[2018-12-15] MEDS: Lantus 1000 UNITS/10 ML VIAL SC SCH (07:51)
[2018-12-15] MEDS: HumaLOG 300 UNITS/3 ML VIAL SC SCH (07:51)
[2018-12-15] MEDS: Clotrimazole 1% Cream 15 GM TUBE TOP SCH (07:51)
[2018-12-15] MEDS: HumaLOG 300 UNITS/3 ML VIAL SC PRN (07:52)
[2018-12-15 08:04] VITALS: BP 111/53
--- NOTE | 2018-12-15 11:53 | DIS ---
DATE OF ADMISSION: 11/29/2018 DATE OF DISCHARGE: 12/15/2018 FINAL DIAGNOSES: 1. Deconditioning and generalized weakness. a. Following recent hospitalization at [facility]. b. Hospitalized at [facility] from 11/17/2018 until 11/29/2018 for left lumbar radiculopathy and pneumonia and burning mouth syndrome, possible candidiasis. c. Improved and probably back to her baseline prior to hospitalization as of 12/18. 2. Pneumonia. a. Resolved. 3. Pulmonary fibrosis. a. Complicated by chronic hypoxemia, requiring supplemental O2. b. Complicated by acute asthmatic bronchitis on 12/04/2018. I. Resolved as of 12/11. 4. Diabetes mellitus, type 2, insulin requiring. a. Diabetic control should improve now she is off the steroids as of 12/11. 5. Hypothyroidism. 6. History of deep venous thrombosis. a. Status post IVC filter. b. On long-term anticoagulant with Xarelto. 7. Hyperlipidemia. 8. Left lumbar radiculopathy. a. Still has intermittent radicular symptoms in the left leg as of 12/13. 9. Obesity. 10. Nonambulatory. 11. Severe osteoarthritis, generalized. a. Status post right total knee replacement. b. Status post left total knee replacement, complicated by infection, requiring removal of hardware, long-term IV antibiotics, and placement with spacers, leaving her nonambulatory. c. Some increased pain in the left knee, probably secondary to the physical therapy. 12. Anemia. SUMMARY: The patient is a 73-year-old white female, who lives at home and whose daughter assists with her care. She has been left bed and chair confined and nonambulatory following a left total knee replacement, that became infected and required removal of hardware, long-term IV antibiotics, and then with spacers placed. As results of all these, she has been left with minimal motion in that left knee and inability to ambulate. She also has a history of a left lumbar radiculopathy. She has history of diabetes type 2 that is insulin-requiring, DVT for which she has had an IVC filter placed and on long-term anticoagulants with Xarelto. She has pulmonary fibrosis complicated by chronic hypoxemia, requiring supplemental O2. The patient was hospitalized at [facility] from 11/17 until 11/29/2018 for an exacerbation of her left lumbar radiculopathy and pneumonia and burning mouth syndrome. The pneumonia resolved. The radiculopathy symptoms improved and the burning mouth syndrome resolved. She was left much weaker than her usual and consequently, was [facility] for purpose of physical therapy, occupational therapy in an effort to try to improve her functional capabilities and hopefully get her back to her baseline, so she can return to her home. Physical Therapy worked with her during the hospitalization and she made excellent progress, to where she was able to assist with transferring from bed to a chair and backwards by pivoting on her right leg. She was able to take two or three steps with her walker, but that was about as far she could go. She gradually reached her baseline, to where she was mobile in bed and able to sit for 4 to 5 hours up in her lounge chair and by the time of her discharge, she thought she had reached her level of function that she was at prior to the hospitalization. The patient had required the supplemental O2 at usually 3 to 3-1/2 L and was able to maintain an O2 saturation in the mid 90s with this. Her pneumonia had resolved. The patient did develop an episode of acute asthmatic bronchitis manifest by increased cough and diffuse wheezing. Chest x-ray at that time was stable and showed no infiltrates. She was treated with Levaquin and prednisone and her neb treatments, and within 24 hours, was markedly improved, and had no recurrence of the wheezing. The steroids were gradually tapered and stopped. Her diabetes was managed with her Lantus and also with Humalog. While she was on the prednisone , her sugars were very much higher and this was managed with adding this up a mild sliding scale to her 4 units of Humalog that she received at mealtime. Her lumbar radiculopathy that is chronic, was managed with application of moist heat, the Neurontin, which was increased to 300 mg at 8 and 2 p.m., and 600 mg at bedtime. She also received hydrocodone 5/325 as needed for the pain and with this, things were manageable. She also use a Lidocaine patch as needed. By 12/15/2018, her condition was stable and she thought that she was at a point that she and her daughter could now manage at home. We will arrange for Home Health to pick back up on her care and continue the physical therapy. She will follow up with her primary care physician. DISPOSITION: DIET: Consistent carbohydrate diet. ACTIVITIES: Up in her lounge chair as tolerated. May apply moist heat to the left leg and knee as needed. MEDICATIONS: 1. O2 at 3 to 3-1/2 L by nasal cannula. 2. Tylenol 325 mg two every 4 hours as needed. 3. DuoNeb 3 mL by nebulizer q.i.d. and every 4 hours as needed. 4. Dulcolax suppository 10 mg 1 per rectum daily as needed. 5. Flexeril 10 mg t.i.d. as needed. 6. Fluticasone two sprays each nostrum daily. 7. Gabapentin 300 mg one at 8 a.m., 2 p.m. and two at bedtime. 8. Hydrocodone/acetaminophen 5/325 one twice a day as needed. 9. Lantus 15 units subcu daily. 10. Humalog 4 units before meals. 11. Theragran-M daily. 12. Levothyroxine 125 mcg daily. 13. Lidocaine patch 4% applied to the knee as needed. 14. Losartan 100 mg daily. 15. Metformin 500 mg b.i.d. 16. Metoprolol succinate 100 mg at bedtime. 17. MiraLAX 17 g 8 ounces water daily. 18. Xarelto 20 mg daily. 19. Rosuvastatin 20 mg daily. 20. Senokot-S 2 b.i.d. 21. Effexor XR 150 mg daily. FOLLOWUP: Home Health will hop picker on her care and also arrange in-home Physical Therapy. The patient should see her regular physician in followup in 2 weeks. CODE STATUS: Full code. Job ID: [id number] [facility]
== END 2018-12-15 11:25 | disposition home health service (06) | DRG 947 ==
LOC: MADMS 17:29
PROVIDERS: ADMIT Family Medicine; ATTEND Family Medicine
DX: R53.1 Weakness (principal); J18.9 Pneumonia, unspecified organism; I10 Essential (primary) hypertension; E11.9 Type 2 diabetes mellitus without complications; Z79.4 Long term (current) use of insulin; E03.9 Hypothyroidism, unspecified; F41.9 Anxiety disorder, unspecified; F32.9 Major depressive disorder, single episode, unspecified; E66.9 Obesity, unspecified; Z90.49 Acquired absence of other specified parts of digestive tract; Z90.710 Acquired absence of both cervix and uterus; Z96.653 Presence of artificial knee joint, bilateral; Z79.84 Long term (current) use of oral hypoglycemic drugs; Z79.899 Other long term (current) drug therapy; Z88.8 Allergy status to other drugs, medicaments and biological substances; R53.81 Other malaise; Z79.01 Long term (current) use of anticoagulants; Z68.37 Body mass index [BMI] 37.0-37.9, adult; E78.5 Hyperlipidemia, unspecified; M54.16 Radiculopathy, lumbar region; K59.00 Constipation, unspecified; J20.9 Acute bronchitis, unspecified; B37.9 Candidiasis, unspecified; Z99.81 Dependence on supplemental oxygen; R09.02 Hypoxemia; D72.829 Elevated white blood cell count, unspecified; T38.0X5A Adverse effect of glucocorticoids and synthetic analogues, initial encounter; T84.54XD Infection and inflammatory reaction due to internal left knee prosthesis, subsequent encounter; D64.9 Anemia, unspecified
CPT/HCPCS: 36415; 36416; 71045; 80048; 80053; 85025; A4217; J1815; J7512; J7620; Q0162

== ENCOUNTER 2018-12-26 17:44 | Emergency (ER) | payer MEDICARE ==
[2018-12-26] MEDS ORDERED: Sodium Chloride 0.9% 1,000 ML ONE ×2 (19:12→20:56)
--- NOTE | 2018-12-26 19:36 | RAD ---
PORTABLE CHEST ONE VIEW: Date: 12-26-18 Time: 7:12 p.m. History: Chest pain. FINDINGS/IMPRESSION: Comparison is made with exam of 12-04-18. The heart is enlarged. Chronic changes in the lung alonso are again seen. There is mild pulmonary vas cular congestion. There is increased density in the retrocardiac region. No pneumothoraces are identi fied. POS: [facility]
--- NOTE | 2018-12-26 19:38 | RAD ---
LEFT HIP ONE VIEW: History: Pain. FINDINGS: There appears to be an intertrochanteric fracture, incompletely evaluated. IMPRESSION: Intertrochanteric fracture, incompletely evaluated. Further evaluation with CT may be beneficial. POS: [facility]
--- NOTE | 2018-12-26 19:40 | RAD ---
ONE VIEW RIGHT HIP: History: Pain. FINDINGS: Based on the image provided, no evidence of fracture or dislocation. If the patient is unable to bear weight, consider CT. IMPRESSION: As above. POS: [facility]
[2018-12-26] MEDS ORDERED: Metoprolol Tartrate 5 MG/5 ML VIAL ONE ×2 (19:55→21:29)
[2018-12-26] MEDS ORDERED: Ketorolac Tromethamine 30 MG/ML VIAL ONE (19:55)
[2018-12-26] MEDS ORDERED: Ondansetron PF 4 MG/2 ML Vial ONE (19:55)
[2018-12-26 19:58] LABS: ALT (SGPT) 23 U/L (8-55); AST (SGOT) 23 U/L (5-34); Albumin 3.9 g/dL (3.4-4.8); Alkaline Phosphatase 47 U/L (40-110); Anion Gap 18 mmol/L (10-20); BUN (Urea Nitrogen) 8 mg/dL (9.8-20.1); Bilirubin, Total 0.3 mg/dL (0.2-1.2); CK (CPK) 13 U/L (29-168); Calc. Creatinine Clearance 0 mL/min (70-130); Calcium 10.1 mg/dL (7.8-10.44); Carbon Dioxide 26 mmol/L (23-31); Chloride 99 mmol/L (98-107); Estimated GFR-MDRD 65; Globulin 3.6 g/dL (2.4-3.5); Glucose 258 mg/dL (83-110); Potassium 4.8 mmol/L (3.5-5.1); Protein, Total 7.5 g/dL (6.0-8.3); Sodium 138 mmol/L (136-145)
[2018-12-26 20:00] LABS: Band 1 % (5-11); Hemoglobin 12.4 g/dL (12.0-16.0); Lymphocytes 23 % (21-51); MDiff Complete? YES; Mean Corpuscular HGB CONC 30.1 g/dL (32.0-36.0); Mean Corpuscular Hemoglobin 27.5 pg (27.0-31.0); Mean Corpuscular Volume 91.2 fL (78.0-98.0); Mean Platelet Volume 6.4 fL (7.4-10.4); Monocytes 5 % (0-10); Neutrophil 66 % (42-75); Platelet Count 416 thou/uL (130-400); Platelet Morphology Comment Appears Increased; RBC Distribution Width 15.1 % (11.5-14.5); Reactive Lymphocytes 5 % (0-10); Red Blood Cell (RBC) Count 4.52 mill/uL (4.20-5.40); White Blood Cell (WBC) Count 16.4 thou/uL (4.8-10.8)
[2018-12-26 20:01] LABS: CKMB 0.6 ng/mL (0-6.6)
[2018-12-26] MEDS ORDERED: Morphine 10 MG/ML VIAL ONE (20:22)
[2018-12-26 21:01] LABS: Bilirubin Small (Negative); Blood, Urine Negative (Negative); Clarity Clear (Clear); Glucose, Urine (Dipstick) 250 mg/dL (Negative); Leukocyte Negative (Negative); Nitrite Negative (Negative); Protein, Urine (Dipstick) 30 mg/dL (Neg-Trace); Urobilinogen 0.2 mg/dL (Less than 2)
[2018-12-26 21:08] LABS: RBC/HPF None Seen HPF (0-3); WBC/HPF 0-3 HPF (0-3)
[2018-12-26 21:09] LABS: Bacteria/HPF Rare-Few HPF (None Seen); Mucous/LPF None Seen LPF (<2+)
[2018-12-26] MEDS ORDERED: Vancomycin HCl 500 MG VIAL ONE (21:40)
[2018-12-26] MEDS ORDERED: Meropenem 1 GM VIAL ONE (21:40)
[2018-12-26] MEDS ORDERED: Morphine 4 MG/ML VIAL ONE (22:08)
[2018-12-26] MEDS ORDERED: Morphine 2 MG/ML SYRINGE ONE (22:08)
[2018-12-26 22:38] LABS: Lactic Acid 2.9 mmol/L (0.5-2.2)
== END 2018-12-26 22:27 | disposition short-term general hospital (02) ==
LOC: MADERS 17:44
DX: A41.9 Sepsis, unspecified organism (principal); S72.012 Unspecified intracapsular fracture of left femur; I47.9 Paroxysmal tachycardia, unspecified; R11.2 Nausea with vomiting, unspecified; E11.9 Type 2 diabetes mellitus without complications; E03.9 Hypothyroidism, unspecified; I10 Essential (primary) hypertension; F32.9 Major depressive disorder, single episode, unspecified; Z79.899 Other long term (current) drug therapy; Z79.4 Long term (current) use of insulin; X58.XXXA Exposure to other specified factors, initial encounter
CPT/HCPCS: 36415; 71045; 80053; 81003; 81015; 82550; 82553; 83605; 83880; 84443; 84484; 85025; 85379; 87040; 87086; 93005; 94760; 96361; 96365; 96368; 96375; 96376; J1885; J2185; J2270; J2405; J3370; J7050